=== PATIENT | female | born 1965 | race Caucasian/White ===

== ENCOUNTER 2021-05-28 14:19 | Outpatient (REF) | payer BC, SELFPAY ==
[2021-05-28 16:38] LABS: MANUAL DIFF FLAG NO
[2021-05-28 16:43] LABS: Basophils Percent Auto 0.5 % (0-2); Eosinophils Absolute Auto 0.5 X10*3/uL (0.0-0.4); Eosinophils Percent Auto 6.4 % (0-4); Hematocrit 44.4 % (37.0-47.0); Hemoglobin 14.2 g/dl (12.0-16.0); Imm Gran Abs Auto 0.02 X10*3/uL (0.00-0.03); Imm Gran Pct Auto 0.2 % (0.0-0.4); Lymphocytes Absolute Auto 2.7 X10*3/uL (1.2-4.9); Lymphocytes Percent Auto 32.8 % (20-40); Mean Corpuscular Hemoglobin 31.5 pg (27.0-33.0); Mean Corpuscular Volume 98.4 fL (80.0-98.0); Mean Platelet Volume 12.9 fL (9.4-12.3); Monocytes Absolute Auto 0.6 X10*3/uL (0.1-1.2); Neutrophils Absolute Auto 4.3 x10*3/uL (2.0-8.3); Neutrophils Percent Auto 53.1 % (45-73); Platelet Count 195 X10*3/uL (160-400); Red Blood Count 4.51 X10*6/uL (4.20-5.50); Red Cell Distribution Width 12.8 % (11.0-16.0); White Blood Count 8.2 X10*3/uL (4.8-10.8)
[2021-05-28 17:28] LABS: Alanine Aminotransferase 22 U/L (0-31); Albumin Level 4.5 g/dL (3.5-5.0); Alkaline Phosphatase 92 U/L (39-117); Anion Gap 16 (12-20); Aspartate Amino Transferase 20 U/L (5-31); Bilirubin Total 0.3 mg/dL (0.0-1.0); Blood Urea Nitrogen 17 mg/dL (9-16); Calcium 10.1 mg/dL (8.4-10.2); Carbon Dioxide 27 mmol/L (22-29); Chloride 103 mmol/L (96-108); Estimated Glomerular Filt Rate > 60; Glucose Random 93 mg/dL (60-115); Potassium 4.6 mmol/L (3.3-5.1); Sodium 141 mmol/L (135-145); Total Protein 7.5 g/dL (6.5-8.0)
[2021-05-28 17:50] LABS: TSH reflex Free T4 1.83 uIU/mL (0.32-4.0)
[2021-05-30 05:31] LABS: LDL Cholesterol Direct 157 mg/dL (<100)
== END 2021-05-28 14:20 | disposition home or self-care (01) ==
LOC: HO.HMGCLDS 14:19
PROVIDERS: PCP Internal Medicine; Visit Provider Internal Medicine
DX: Z00.01 Encounter for general adult medical examination with abnormal findings (principal); E66.09 Other obesity due to excess calories; F41.1 Generalized anxiety disorder; J45.40 Moderate persistent asthma, uncomplicated
CPT/HCPCS: 36415; 80053; 83721; 84443; 85025

== ENCOUNTER 2022-01-28 11:25 | Outpatient (REF) | payer BC, SELFPAY ==
--- NOTE | ~2022-01-28 | MM_ITS ---
EXAMINATION: MM SCREENING DIGITAL BREAST TOMOSYNTHESIS, BILATERAL CLINICAL INFORMATION: Screening. Asymptomatic. The lifetime risk of breast cancer based on the Tyrer-Cuzick Model is 10%. COMPARISON: Mammography: 12/10/2018, 08/14/2017, 10/11/2014, 03/27/2014 TECHNIQUE: Digital breast tomosynthesis is performed in both the craniocaudal and mediolateral oblique views along with computer-aided detection (CAD). Synthesized 2D images are generated from the tomosynthesis. FINDINGS: The breasts are heterogeneously dense, which may obscure small masses (ACR BI-RADS breast composition Category c). Parenchymal pattern is similar to prior studies. There is no developing density or architectural abnormality. There is no interval mass or abnormal calcifications. The axilla and skin contours are unremarkable. Incidental low right axillary tail node. No significant changes. MM/MM tomosynthesis screening BI IMPRESSION: No mammographic evidence of malignancy. ASSESSMENT: BI-RADS 2: Benign RECOMMENDATION: Routine annual mammography screening. This patient's information was entered into a reminder system with a target due date for their next mammogram.
== END 2022-01-28 11:26 | disposition home or self-care (01) ==
LOC: HO.MAMMO 11:25
PROVIDERS: PCP Internal Medicine; Visit Provider Internal Medicine
DX: Z12.31 Encounter for screening mammogram for malignant neoplasm of breast (principal)
CPT/HCPCS: 77063; 77067

== ENCOUNTER 2022-08-21 06:07 | Outpatient (REF) | payer BC, SELFPAY ==
[2022-08-21 11:25] LABS: MANUAL DIFF FLAG NO
[2022-08-21 11:51] LABS: Basophils Absolute Auto 0.1 X10*3/uL (0.0-0.2); Basophils Percent Auto 0.8 % (0-2); Eosinophils Absolute Auto 0.4 X10*3/uL (0.0-0.4); Eosinophils Percent Auto 6.4 % (0-4); Hematocrit 45.8 % (37.0-47.0); Hemoglobin 14.7 g/dl (12.0-16.0); Imm Gran Abs Auto 0.02 X10*3/uL (0.00-0.03); Imm Gran Pct Auto 0.3 % (0.0-0.4); Lymphocytes Absolute Auto 2.1 X10*3/uL (1.2-4.9); Lymphocytes Percent Auto 32.1 % (20-40); Mean Corpuscular HGB Conc 32.1 g/dl (31.0-35.0); Mean Corpuscular Hemoglobin 31.6 pg (27.0-33.0); Mean Corpuscular Volume 98.5 fL (80.0-98.0); Mean Platelet Volume 12.9 fL (9.4-12.3); Monocytes Absolute Auto 0.5 X10*3/uL (0.1-1.2); Monocytes Percent Auto 7.4 % (2-11); Neutrophils Absolute Auto 3.4 x10*3/uL (2.0-8.3); Platelet Count 215 X10*3/uL (160-400); Red Blood Count 4.65 X10*6/uL (4.20-5.50); White Blood Count 6.4 X10*3/uL (4.8-10.8)
[2022-08-21 12:50] LABS: Alanine Aminotransferase 19 U/L (0-31); Albumin Level 4.1 g/dL (3.5-5.0); Alkaline Phosphatase 73 U/L (39-117); Anion Gap 12 (12-20); Aspartate Amino Transferase 16 U/L (5-31); Bilirubin Total 0.4 mg/dL (0.0-1.0); Blood Urea Nitrogen 18 mg/dL (9-16); Calcium 9.2 mg/dL (8.4-10.2); Carbon Dioxide 28 mmol/L (22-29); Chloride 106 mmol/L (96-108); Cholesterol 241 mg/dL; Estimated Glomerular Filt Rate > 60; Glucose Fasting 115 mg/dL (60-99); HDL Cholesterol 68 mg/dL; LDL Cholesterol Calculated 156 mg/dl; Potassium 4.3 mmol/L (3.3-5.1); Sodium 142 mmol/L (135-145); TSH reflex Free T4 2.08 uIU/mL (0.32-4.0); Total Protein 6.5 g/dL (6.5-8.0); Triglycerides 86 mg/dL
== END 2022-08-21 06:08 | disposition home or self-care (01) ==
LOC: HO.HMGCLDS 06:07
PROVIDERS: PCP Internal Medicine; Visit Provider Internal Medicine
DX: Z00.01 Encounter for general adult medical examination with abnormal findings (principal); J45.40 Moderate persistent asthma, uncomplicated; E66.09 Other obesity due to excess calories
CPT/HCPCS: 36415; 80053; 80061; 84443; 85025

== ENCOUNTER 2023-01-27 10:25 | Outpatient (AMB) | payer BC, SELFPAY ==
--- NOTE | 2023-01-27 10:35 | MHC.OFFWIV ---
Intake Vital Signs 01/27/23 10:36 Weight 201 lb BP 118/70 Blood Pressure Location Lt brachial Position Sitting Pulse 102 H Pulse Source Pulse Oximeter Temp 98.3 F Temp Source Oral Pulse Oximetry (%) 98 Oxygen Delivery Method Room Air Intake Visit Reasons: EP, Rash by side of mouth Intake Note: Patient here for rash on the left side of mouth that has been present for about 1 month. Patient Tobacco Use Status: Former Tobacco user (quit 28 years ago ) Allergies No Known Allergies Allergy (Verified 01/27/23 10:37) Environmental Allergy (Unknown, Uncoded 01/27/23 10:37) congestion Medication List - Last Reconciled 01/27/23 by Simon Lang MD fluticasone propion-salmeterol 250-50 mcg/dose (Advair Diskus) 1 inh inhalation BID triamcinolone acetonide 0.025% 1 appl topical BID Do you need a note to return to daycare/school/sports/work: No HPI EP, Rash by side of mouth HPI Details 57-year-old female presents to the office for a sick visit. Patient has a rash on the left side of her mouth that she would like evaluated. She gets this rash mostly in the summer months. Always on the left side just adjacent to the angle of the mouth. [facility] Social History Housing: House Patient Tobacco Use Status: Former Tobacco user (quit 28 years ago ) Tobacco use type: Cigarette Years Smoked: 5 years e-Cigarette/Vaping Use: Never Used service: No Current occupational status: employed Cognitive needs: No Hearing needs: No Vision needs: No Physical Exam Vital Signs: Last Vital Signs Temp 98.3 F 01/27/23 10:36 Pulse 102 H 01/27/23 10:36 BP 118/70 01/27/23 10:36 Pulse Ox 98 01/27/23 10:36 Oxygen Delivery Method Room Air 01/27/23 10:36 HEENT Other: Oral cavity: Left side: Brown erythematous area on the corner of the mouth with overlying scales. Assessment & Plan Assessment & Plan (1) Cheilitis due to atopic dermatitis: Code(s): K13.0 - Diseases of lips; L20.9 - Atopic dermatitis, unspecified Plan: steroid cream prescribed. If symptoms not better to follow-up here. Medications: New triamcinolone acetonide 0.025% 1 appl topical BID 15 grams 0RF Discontinued clobetasol 0.05% Discontinued Reason: Doctor's Order 1 appl topical BID 3 weeks 30 grams 0RF Rash Coding Level of Care Code Est Pt Level 3 (10906) Diagnoses Cheilitis due to atopic dermatitis K13.0; L20.9
[2023-01-27 10:36] VITALS: BP 118/70; PULSE 102; TEMP 36.8; O2SAT 98
== END 2023-01-27 12:02 | disposition home or self-care (01) ==
PROVIDERS: PCP Internal Medicine; Visit Provider Internal Medicine
DX: K13.0 Diseases of lips (principal); L20.9 Atopic dermatitis, unspecified
CPT/HCPCS: 99213

== ENCOUNTER 2023-01-29 11:55 | Outpatient (REF) | payer BC, SELFPAY | END 2023-01-29 11:56 | disposition home or self-care (01) | LOC: HO.MAMMO 11:55 | PROVIDERS: PCP Internal Medicine; Visit Provider Internal Medicine | DX: Z12.31 Encounter for screening mammogram for malignant neoplasm of breast (principal) | CPT/HCPCS: 77063; 77067 ==

== ENCOUNTER → 2023-01-29 12:00 | Outpatient (BNV) | payer BC, SELFPAY | PROVIDERS: PCP Internal Medicine; Visit Provider Radiology Diagnostic Radiology | DX: Z12.31 Encounter for screening mammogram for malignant neoplasm of breast (principal) | CPT/HCPCS: 77063; 77067 ==

== ENCOUNTER 2023-02-24 08:51 | Outpatient (AMB) | payer BC, SELFPAY ==
--- NOTE | 2023-02-24 08:59 | MHC.PC.OV ---
Intake Visit Reasons: Med Follow Up~ Intake Note: [phone] Allergies No Known Allergies Allergy (Verified 02/24/23 09:02) Environmental Allergy (Unknown, Uncoded 02/24/23 09:02) congestion Medication List - Last Reconciled 02/24/23 by Mart Watson MD fluticasone propion-salmeterol 250-50 mcg/dose (Advair Diskus) 1 inh inhalation BID triamcinolone acetonide 0.025% 1 appl topical BID Tobacco use date assessed: 02/24/23 Dental Screening Dental Screen Date: 02/24/23 Did you have a dental visit in the last 12 months?: Yes Did you have a dental problem in the last 6 months where you did not have access to dental care?: No Was dental information given to patient?: Patient has dentist HPI Med Follow Up~ HPI Details Patient is a 57-year-old female who is going through stressful time related to her work environment Patient used to take sertraline in the past for depression she stopped taking it when she felt better She tells me that she had some leftover medication 25 mg of sertraline she has started taking that since January 28 She still feel very emotional talking about the work situation. Patient was tearful explaining the situation to me on the telephone I am increasing the sertraline dose to 50 mg patient have a follow-up appointment 12 of March She does have someone to talk to at work. Which is helping. [facility] Social History Housing: House Patient Tobacco Use Status: Former Tobacco user (quit 28 years ago ) Tobacco use type: Cigarette Years Smoked: 5 years e-Cigarette/Vaping Use: Never Used service: No Current occupational status: employed Cognitive needs: No Hearing needs: No Vision needs: No Questionnaire Thrive Questionnaire Date Thrive assessed: 01/30/22 AUDIT C Alcohol Use Questionnaire (AUDIT-C) 1. How often do you have a drink containing alcohol?: 2-3 times a week 2. How many drinks containing alcohol do you have on a typical day when you are drinking?: 1 or 2 3. How often do you have six or more drinks on one occasion?: Never Total Score: 3 CAROLINA-7 AMB Questionnaire CAROLINA-7 Date CAROLINA - 7 assessed: 01/30/22 Source: Developed by Drs. Louie Ugalde, Irma Baldwin, Rayray Meier and colleagues, with an educational cuco from [employer]. Review of Systems Const Denies chills and Denies fever(s) ENT Denies epistaxis and Denies nasal discharge Card Denies chest pain Resp Denies chest congestion, Denies cough and Denies hemoptysis GI Denies diarrhea and Denies nausea Skin/Breast Denies rash Neuro Reports no additional complaints Psych Reports no additional complaints Endo Reports no additional complaints Physical exam (Primary Care) Tobacco/Smoking Status: Tobacco use Status Tobacco use date assessed 02/24/23 02/24/23 09:03 Patient Tobacco Use Status Former Tobacco user (quit 28 02/24/23 09:03 years ago ) Tobacco use type Cigarette 02/24/23 09:03 e-Cigarette/Vaping Use Never Used 02/24/23 09:03 Thrive Assessment: Date of Thrive Assessment Date Thrive assessed 01/30/22 02/24/23 09:03 Telehealth Telehealth Location of provider rendering services: practice address Location of patient: address on file Patient Identification confirmed using: Name, : Yes Telehealth method: voice only Patient verbally consented to treatment: Yes Patient verbally consented to billing insurance company: Yes Patient informed of any privacy concerns related to visit: Yes Minutes spent on Phone/Video with Pt.: 14 Assessment and Plan Assessment & Plan (1) Major depression, recurrent: Code(s): F33.9 - Major depressive disorder, recurrent, unspecified Qualifiers: Active/Remission status: currently active Major depression episode severity: moderate Qualified Code(s): F33.1 - Major depressive disorder, recurrent, moderate Plan Patient is a 57-year-old female who is going through stressful time related to her work environment Patient used to take sertraline in the past for depression she stopped taking it when she felt better She tells me that she had some leftover medication 25 mg of sertraline she has started taking that since January 28 She still feel very emotional talking about the work situation. Patient was tearful explaining the situation to me on the telephone I am increasing the sertraline dose to 50 mg patient have a follow-up appointment 12 of March She does have someone to talk to at work. Which is helping. Medications: New sertraline 50 mg PO DAILY 30 tabs 0RF Coding Level of Care Code Tele Est Pt Level 3 (02916) Diagnoses Moderate episode of recurrent major depressive disorder F33.1 Active/Remission status: currently active Major depression episode severity: moderate
== END 2023-02-24 12:15 | disposition home or self-care (01) ==
LOC: HO.HMGC 08:51
PROVIDERS: PCP Internal Medicine; Visit Provider Internal Medicine
DX: F33.1 Major depressive disorder, recurrent, moderate (principal)
CPT/HCPCS: 99442

== ENCOUNTER 2023-02-27 07:00 | Outpatient (REF) | payer BC, SELFPAY ==
[2023-02-27 11:32] LABS: Estimated Average Glucose 111 mg/dL; Hemoglobin A1c % 5.5 % (<6.0)
[2023-02-27 11:44] LABS: Alanine Aminotransferase 20 U/L (0-31); Albumin Level 4.2 g/dL (3.5-5.0); Alkaline Phosphatase 79 U/L (39-117); Anion Gap 13 (12-20); Aspartate Amino Transferase 16 U/L (5-31); Bilirubin Total 0.3 mg/dL (0.0-1.0); Blood Urea Nitrogen 15 mg/dL (9-16); Calcium 9.3 mg/dL (8.4-10.2); Carbon Dioxide 25 mmol/L (22-29); Chloride 108 mmol/L (96-108); Cholesterol 243 mg/dL (<200); Estimated Glomerular Filt Rate > 60; Glucose Fasting 117 mg/dL (60-99); HDL Cholesterol 78 mg/dL (>40); LDL Cholesterol Calculated 151 mg/dL (<100); Potassium 4.6 mmol/L (3.3-5.1); Sodium 141 mmol/L (135-145); Total Protein 7.3 g/dL (6.5-8.0); Triglycerides 73 mg/dL (<150)
== END 2023-02-27 07:01 | disposition home or self-care (01) ==
LOC: HO.HMGCLDS 07:00
PROVIDERS: PCP Internal Medicine; Visit Provider Internal Medicine
DX: R73.01 Impaired fasting glucose (principal); E78.9 Disorder of lipoprotein metabolism, unspecified
CPT/HCPCS: 36415; 80053; 80061; 83036

== ENCOUNTER 2023-03-12 09:08 | Outpatient (AMB) | payer BC, SELFPAY ==
[2023-03-12 09:12] VITALS: BP 128/72; PULSE 111; O2SAT 98; BMI 33.6
--- NOTE | 2023-03-12 09:12 | MHC.PC.OV ---
Vital Signs 03/12/23 09:12 Height 5 ft 4 in Weight 196 lb BMI 33.6 BP 128/72 Blood Pressure Location Rt brachial Position Sitting Pulse 111 H Pulse Source Pulse Oximeter Pulse Oximetry (%) 98 Oxygen Delivery Method Room Air Intake Visit Reasons: 6m follow up Allergies No Known Allergies Allergy (Verified 03/12/23 09:15) Environmental Allergy (Unknown, Uncoded 02/24/23 09:02) congestion Medication List - Last Reconciled 03/12/23 by Mart Watson MD fluticasone propion-salmeterol 250-50 mcg/dose (Advair Diskus) 1 inh inhalation BID sertraline 50 mg PO DAILY triamcinolone acetonide 0.025% 1 appl topical BID Tobacco use date assessed: 03/12/23 Dental Screening Dental Screen Date: 03/12/23 Did you have a dental visit in the last 12 months?: Yes Did you have a dental problem in the last 6 months where you did not have access to dental care?: No Was dental information given to patient?: Patient has dentist HPI 6m follow up HPI Details Patient is a 57-year-old female came in today for follow-up appointment Patient was feeling depressed last visit 3 weeks ago, she had some leftover sertraline at home that she restarted taking 25 mg We adjusted the dose to 50 mg patient is feeling much better now and she would like to continue this dose. She had a COVID infection 9 days ago and is still recovering from it feeling tired Still have slight dry cough Patient have asthma she is taking her inhaler regularly, her chest is clear on auscultation today. Patient also have elevated lipids it was last check this month LDL is 151 but she does not want to take any medications Impaired fasting sugar with stable hemoglobin A1c BMI is elevated I would recommend for patient to concentrate on losing weight. He has a physical exam appointment in July she will return that. [facility] Social History Housing: House Patient Tobacco Use Status: Former Tobacco user (quit 28 years ago ) Tobacco use type: Cigarette Years Smoked: 5 years e-Cigarette/Vaping Use: Never Used service: No Current occupational status: employed Cognitive needs: No Hearing needs: No Vision needs: No Questionnaire PHQ-9 Over the last 2 weeks, how often have you been bothered by any of the following problems? 1. Little interest or pleasure in doing things: not at all 2. Feeling down, depressed, or hopeless: not at all 3. Trouble falling or staying asleep, or sleeping too much: not at all 4. Feeling tired or having little energy: not at all 5. Poor appetite or overeating: not at all 6. Feeling bad about yourself - or that you are a failure or have let yourself or your family down: not at all 7. Trouble concentrating on things, such as reading the newspaper or watching television: not at all 8. Moving or speaking so slowly that other people could have noticed. Or the opposite - being so fidgety or restless that you have been moving around a lot more than usual: not at all 9. Thoughts that you would be better off or of hurting yourself in some way: not at all Total score: 0 Depression Screening Interpretation: Negative 20952 - PHQ-9 Billing: Yes Source: Developed by Drs. Louie Ugalde, Rayray Hilliard and colleagues, with an educational cuco from [employer]. Thrive Questionnaire Date Thrive assessed: 01/30/22 AUDIT C Alcohol Use Questionnaire (AUDIT-C) 1. How often do you have a drink containing alcohol?: Never 3. How often do you have six or more drinks on one occasion?: Never Total Score: 0 Score Reviewed/Action Taken: Yes CAROLINA-7 AMB Questionnaire CAROLINA-7 Date CAROLINA - 7 assessed: 01/30/22 Source: Developed by Drs. Louie Ugalde, Rayray Hilliard and colleagues, with an educational cuco from [employer]. Review of Systems Const Denies chills and Denies fever(s) ENT Denies epistaxis and Denies nasal discharge Card Denies chest pain Resp Denies chest congestion and Denies hemoptysis GI Denies diarrhea and Denies nausea Skin/Breast Denies rash Neuro Reports no additional complaints Psych Reports no additional complaints Endo Reports no additional complaints Physical exam (Primary Care) Vital Signs: Last Vital Signs Pulse 111 H 03/12/23 09:12 BP 128/72 03/12/23 09:12 Pulse Ox 98 03/12/23 09:12 Oxygen Delivery Method Room Air 03/12/23 09:12 BMI result Body Mass Index 33.6 Tobacco/Smoking Status: Tobacco use Status Tobacco use date assessed 03/12/23 03/12/23 09:15 Patient Tobacco Use Status Former Tobacco user (quit 03/12/23 09:15 years ago ) Tobacco use type Cigarette 03/12/23 09:15 e-Cigarette/Vaping Use Never Used 03/12/23 09:15 Depression Screening Interpretation: Negative Thrive Assessment: Date of Thrive Assessment Date Thrive assessed 01/30/22 03/12/23 09:15 Const General: cooperative, comfortable and no acute distress Orientation/consciousness: patient oriented x3 HENMT Head: Yes normocephalic Eyes General: appearance normal, both eyes and all related structures Neck Neck: Yes supple Resp Effort & Inspection: normal respiratory effort, no cough and no stridor Cardio Rhythm: regular rhythm Heart sounds: S1 normal heart sound present and S2 normal heart sound present Skin General skin exam: turgor normal Neuro General: patient oriented x3, tone normal and moves all extremities Extrem Right lower extremity: no edema Left lower extremity: no edema Assessment and Plan Assessment & Plan (1) Major depression, recurrent: Code(s): F33.9 - Major depressive disorder, recurrent, unspecified Qualifiers: Active/Remission status: currently active Major depression episode severity: moderate Qualified Code(s): F33.1 - Major depressive disorder, recurrent, moderate (2) Asthma, moderate persistent: Code(s): J45.40 - Moderate persistent asthma, uncomplicated Qualifiers: Asthma complication type: uncomplicated Qualified Code(s): J45.40 - Moderate persistent asthma, uncomplicated (3) Anxiety, generalized: Code(s): F41.1 - Generalized anxiety disorder (4) Lipid disorder: Code(s): E78.9 - Disorder of lipoprotein metabolism, unspecified (5) Impaired fasting blood sugar: Code(s): R73.01 - Impaired fasting glucose Plan Patient is a 57-year-old female came in today for follow-up appointment Patient was feeling depressed last visit 3 weeks ago, she had some leftover sertraline at home that she restarted taking 25 mg We adjusted the dose to 50 mg patient is feeling much better now and she would like to continue this dose. She had a COVID infection 9 days ago and is still recovering from it feeling tired Still have slight dry cough Patient have asthma she is taking her inhaler regularly, her chest is clear on auscultation today. Patient also have elevated lipids it was last check this month LDL is 151 but she does not want to take any medications Impaired fasting sugar with stable hemoglobin A1c BMI is elevated I would recommend for patient to concentrate on losing weight. He has a physical exam appointment in July she will return that. Medications: Refilled sertraline 50 mg PO DAILY 90 tabs 1RF Coding Level of Care Code Est Pt Level 4 (58501) Diagnoses Moderate episode of recurrent major depressive disorder F33.1 Active/Remission status: currently active Major depression episode severity: moderate Moderate persistent asthma without complication J45.40 Asthma complication type: uncomplicated Anxiety, generalized F41.1 Lipid disorder E78.9 Impaired fasting blood sugar R73.01
== END 2023-03-12 11:44 | disposition home or self-care (01) ==
PROVIDERS: PCP Internal Medicine; Visit Provider Internal Medicine
DX: F33.1 Major depressive disorder, recurrent, moderate (principal); J45.40 Moderate persistent asthma, uncomplicated; F41.1 Generalized anxiety disorder; E78.9 Disorder of lipoprotein metabolism, unspecified; R73.01 Impaired fasting glucose
CPT/HCPCS: 99214

== ENCOUNTER 2023-09-01 12:56 | Outpatient (AMB) | payer BC, SELFPAY ==
--- NOTE | 2023-09-01 13:04 | MHC.PC.OV ---
Vital Signs 09/01/23 13:08 Height 5 ft 4 in Weight 199 lb 8 oz BMI 34.2 BP 120/72 Blood Pressure Location Lt brachial Position Sitting Pulse 90 Pulse Source Pulse Oximeter Pulse Oximetry (%) 96 Oxygen Delivery Method Room Air Intake Visit Reasons: Overdue F/u ~ Allergies No Known Allergies Allergy (Verified 09/01/23 13:10) Environmental Allergy (Unknown, Uncoded 02/24/23 09:02) congestion Medication List - Last Reconciled 09/01/23 by Mart Watson MD fluticasone propion-salmeterol 250-50 mcg/dose (Advair Diskus) 1 inh inhalation BID sertraline 50 mg PO DAILY Tobacco use date assessed: 09/01/23 Dental Screening Dental Screen Date: 09/01/23 Did you have a dental visit in the last 12 months?: Yes Did you have a dental problem in the last 6 months where you did not have access to dental care?: No Was dental information given to patient?: Patient has dentist HPI Overdue F/u ~ HPI Details Patient is a 57-year-old female this is a regular follow-up appointment She is feeling much better, patient has decided to retire She says that she is ready to cut down sertraline dose to 25 mg Allergies: Patient is getting allergy shots for years Still her allergies are acting up due to spring Asthma is stable she is taking Advair daily. Patient have impaired fasting sugar and elevated lipids She is willing to take small dose of statin which I have sent for her. BMI is elevated need to lose weight Seborrheic dermatitis stable Follow-up 4 months [facility] Social History Housing: House Patient Tobacco Use Status: Former Tobacco user (quit 28 years ago ) Tobacco use type: Cigarette Years Smoked: 5 years e-Cigarette/Vaping Use: Never Used service: No Current occupational status: employed Cognitive needs: No Hearing needs: No Vision needs: No Questionnaire PHQ-9 Over the last 2 weeks, how often have you been bothered by any of the following problems? 1. Little interest or pleasure in doing things: not at all 2. Feeling down, depressed, or hopeless: not at all 3. Trouble falling or staying asleep, or sleeping too much: several days 4. Feeling tired or having little energy: several days 5. Poor appetite or overeating: not at all 6. Feeling bad about yourself - or that you are a failure or have let yourself or your family down: not at all 7. Trouble concentrating on things, such as reading the newspaper or watching television: several days 8. Moving or speaking so slowly that other people could have noticed. Or the opposite - being so fidgety or restless that you have been moving around a lot more than usual: not at all 9. Thoughts that you would be better off or of hurting yourself in some way: not at all Total score: 3 Depression Screening Interpretation: Negative Depression Screening Done: Yes 93112 - PHQ-9 Billing: Yes Source: Developed by Drs. Louie Ugalde, Irma Baldwin, Rayray Meier and colleagues, with an educational cuco from [employer]. Thrive Questionnaire Date Thrive assessed: 09/01/23 I am a: Patient What is your living situation today?: I have a steady place to live Within the past 12 months, did the food you bought not last and you didn't have the money to get more?: Never true Within the past 12 months, did you worry whether your food would run out before you got money to buy more?: Never true Do you have trouble paying for medicines?: No Do you have trouble getting transportation to medical appointments?: No Do you have trouble paying your heating and electricity bill?: No Do you have trouble taking care of your child, family member or friend?: No Do you have trouble with day-to-day activities such as bathing, preparing meals, shopping, managing finances, etc.?: No Are you currently unemployed and looking for a job?: No Are you interested in more education?: No Please select the resources that you would like help with: None Currently or been in a relationship where the following occur: no concerns reported THRIVE Score: 0 AUDIT C Alcohol Use Questionnaire (AUDIT-C) 1. How often do you have a drink containing alcohol?: Never 3. How often do you have six or more drinks on one occasion?: Never Total Score: 0 Score Reviewed/Action Taken: Yes CAROLINA-7 AMB Questionnaire CAROLINA-7 Date CAROLINA - 7 assessed: 09/01/23 Feeling nervous, anxious, or on edge: 1 = Several days Not being able to stop or control worryin = Several days Worrying too much about different things: 1 = Several days Trouble relaxin = Several days Being so restless that it is hard to sit still: 1 = Several days Becoming easily annoyed or irritable: 1 = Several days Feeling afraid as if something awful might happen: 0 = Not at all Total CAROLINA-7 score (0-4 normal; 5-9 mild; 10-14 moderate; 15-21 severe): 6 Source: Developed by Drs. Louie Ugalde, Irma Baldwin, Rayray Meier and colleagues, with an educational cuco from [employer]. CAROLINA-7 Assessment Billing CAROLINA-7 Assessment Tool: CAROLINA-7 Assessment 53318 Review of Systems Const Denies chills and Denies fever(s) ENT Denies epistaxis and Denies nasal discharge Card Denies chest pain Resp Denies chest congestion, Denies cough and Denies hemoptysis GI Denies diarrhea and Denies nausea Skin/Breast Denies rash Neuro Reports no additional complaints Psych Reports no additional complaints Endo Reports no additional complaints Physical exam (Primary Care) Vital Signs: Last Vital Signs Pulse 90 09/01/23 13:08 BP 120/72 09/01/23 13:08 Pulse Ox 96 09/01/23 13:08 Oxygen Delivery Method Room Air 09/01/23 13:08 BMI result Body Mass Index 34.2 Tobacco/Smoking Status: Tobacco use Status Tobacco use date assessed 09/01/23 09/01/23 13:11 Patient Tobacco Use Status Former Tobacco user (quit 28 09/01/23 13:07 years ago ) Tobacco use type Cigarette 09/01/23 13:07 e-Cigarette/Vaping Use Never Used 09/01/23 13:07 PHQ-9: PHQ-9 Score PHQ-9: Total score 3 09/01/23 13:12 Depression Screening Interpretation: Negative Thrive Assessment: Date of Thrive Assessment Date Thrive assessed 09/01/23 09/01/23 13:12 Currently or been in a relationship where the following occur: no concerns reported Const General: cooperative, comfortable and no acute distress Orientation/consciousness: patient oriented x3 HENMT Head: Yes normocephalic Eyes General: appearance normal, both eyes and all related structures Neck Neck: Yes supple Resp Effort & Inspection: normal respiratory effort, no cough and no stridor Cardio Rhythm: regular rhythm Heart sounds: S1 normal heart sound present and S2 normal heart sound present Skin General skin exam: turgor normal Neuro General: patient oriented x3, tone normal and moves all extremities Extrem Right lower extremity: no edema Left lower extremity: no edema Assessment and Plan Assessment & Plan (1) Anxiety, generalized: Code(s): F41.1 - Generalized anxiety disorder (2) Major depression, recurrent: Code(s): F33.9 - Major depressive disorder, recurrent, unspecified Qualifiers: Active/Remission status: currently active Major depression episode severity: moderate Qualified Code(s): F33.1 - Major depressive disorder, recurrent, moderate (3) Asthma, moderate persistent: Code(s): J45.40 - Moderate persistent asthma, uncomplicated Qualifiers: Asthma complication type: uncomplicated Qualified Code(s): J45.40 - Moderate persistent asthma, uncomplicated (4) Impaired fasting blood sugar: Code(s): R73.01 - Impaired fasting glucose (5) Lipid disorder: Code(s): E78.9 - Disorder of lipoprotein metabolism, unspecified (6) Seborrheic dermatitis: Code(s): L21.9 - Seborrheic dermatitis, unspecified Plan Patient is a 57-year-old female this is a regular follow-up appointment She is feeling much better, patient has decided to retire She says that she is ready to cut down sertraline dose to 25 mg Allergies: Patient is getting allergy shots for years Still her allergies are acting up due to spring season Asthma is stable she is taking Advair daily. Patient have impaired fasting sugar and elevated lipids She is willing to take small dose of statin which I have sent for her. BMI is elevated need to lose weight Seborrheic dermatitis stable Follow-up 4 months Orders: Orders Complete Blood Count Auto Diff Today E78.9 - Disorder of lipoprotein metabolism, unspecified, F33.9 - Major depressive disorder, recurrent, unspecified, F41.1 - Generalized anxiety disorder, J45.40 - Moderate persistent asthma, uncomplicated, L21.9 - Seborrheic dermatitis, unspecified, R73.01 - Impaired fasting glucose Comprehensive Met. Panel Today E78.9 - Disorder of lipoprotein metabolism, unspecified, F33.9 - Major depressive disorder, recurrent, unspecified, F41.1 - Generalized anxiety disorder, J45.40 - Moderate persistent asthma, uncomplicated, L21.9 - Seborrheic dermatitis, unspecified, R73.01 - Impaired fasting glucose LDL Cholesterol Direct Today E78.9 - Disorder of lipoprotein metabolism, unspecified, F33.9 - Major depressive disorder, recurrent, unspecified, F41.1 - Generalized anxiety disorder, J45.40 - Moderate persistent asthma, uncomplicated, L21.9 - Seborrheic dermatitis, unspecified, R73.01 - Impaired fasting glucose Medications: New rosuvastatin 5 mg PO DAILY 90 tabs 0RF Elevated cholesterol Changed From sertraline 50 mg PO DAILY 90 tabs 1RF To sertraline 25 mg PO DAILY 90 days 90 tabs 1RF Refilled fluticasone propion-salmeterol 250-50 mcg/dose (Advair Diskus) 1 inh inhalation BID 60 ea 2RF J45.909 - Unspecified asthma, uncomplicated Coding Level of Care Code Est Pt Level 4 (76848) Diagnoses Anxiety, generalized F41.1 Moderate episode of recurrent major depressive disorder F33.1 Active/Remission status: currently active Major depression episode severity: moderate Moderate persistent asthma without complication J45.40 Asthma complication type: uncomplicated Impaired fasting blood sugar R73.01 Lipid disorder E78.9 Seborrheic dermatitis L21.9 Additional Codes CAROLINA-7 Assessment Billing - CAROLINA-7 Assessment Tool: CAROLINA-7 Assessment 53323 ([id number])
[2023-09-01 13:08] VITALS: BP 120/72; PULSE 90; O2SAT 96; BMI 34.2
== END 2023-09-01 13:27 | disposition home or self-care (01) ==
PROVIDERS: PCP Internal Medicine; Visit Provider Internal Medicine
DX: F41.1 Generalized anxiety disorder (principal); F33.1 Major depressive disorder, recurrent, moderate; J45.40 Moderate persistent asthma, uncomplicated; R73.01 Impaired fasting glucose; E78.9 Disorder of lipoprotein metabolism, unspecified; L21.9 Seborrheic dermatitis, unspecified
CPT/HCPCS: 99214

== ENCOUNTER 2023-09-01 13:29 | Outpatient (REF) | payer BC, SELFPAY ==
[2023-09-01 16:18] LABS: MANUAL DIFF FLAG NO
[2023-09-01 16:25] LABS: Basophils Percent Auto 0.6 % (0-2); Eosinophils Absolute Auto 0.3 X10*3/uL (0.0-0.4); Eosinophils Percent Auto 4.3 % (0-4); Hemoglobin 14.3 g/dl (12.0-16.0); Imm Gran Abs Auto 0.02 X10*3/uL (0.00-0.03); Imm Gran Pct Auto 0.3 % (0.0-0.4); Lymphocytes Absolute Auto 2.4 X10*3/uL (1.2-4.9); Lymphocytes Percent Auto 33.4 % (20-40); Mean Corpuscular HGB Conc 33.3 g/dl (31.0-35.0); Mean Corpuscular Hemoglobin 32.2 pg (27.0-33.0); Mean Corpuscular Volume 96.8 fL (80.0-98.0); Mean Platelet Volume 12.8 fL (9.4-12.3); Monocytes Absolute Auto 0.5 X10*3/uL (0.1-1.2); Monocytes Percent Auto 6.4 % (2-11); Neutrophils Absolute Auto 3.9 x10*3/uL (2.0-8.3); Platelet Count 188 X10*3/uL (160-400); Red Blood Count 4.44 X10*6/uL (4.20-5.50); Red Cell Distribution Width 12.9 % (11.0-16.0)
[2023-09-01 16:43] LABS: Alanine Aminotransferase 19 U/L (0-31); Albumin Level 4.4 g/dL (3.5-5.0); Alkaline Phosphatase 85 U/L (39-117); Anion Gap 15 (12-20); Aspartate Amino Transferase 18 U/L (5-31); Bilirubin Total 0.3 mg/dL (0.0-1.0); Blood Urea Nitrogen 14 mg/dL (9-16); Calcium 9.6 mg/dL (8.4-10.2); Carbon Dioxide 26 mmol/L (22-29); Chloride 102 mmol/L (96-108); Estimated Glomerular Filt Rate > 60; Glucose Random 95 mg/dL (60-115); Potassium 3.8 mmol/L (3.3-5.1); Sodium 139 mmol/L (135-145); Total Protein 7.4 g/dL (6.5-8.0)
[2023-09-03 13:48] LABS: LDL Cholesterol Direct 173 mg/dL (<100)
== END 2023-09-01 13:30 | disposition home or self-care (01) ==
LOC: HO.HMGCLDS 13:29
PROVIDERS: PCP Internal Medicine; Visit Provider Internal Medicine
DX: F33.9 Major depressive disorder, recurrent, unspecified (principal); R73.01 Impaired fasting glucose; E78.9 Disorder of lipoprotein metabolism, unspecified; L21.9 Seborrheic dermatitis, unspecified; F41.1 Generalized anxiety disorder; J45.40 Moderate persistent asthma, uncomplicated
CPT/HCPCS: 36415; 80053; 83721; 85025

== ENCOUNTER 2023-12-21 08:48 | Outpatient (AMB) | payer BC, SELFPAY ==
--- NOTE | 2023-12-21 08:56 | A.OFFPC_ITS ---
Vital Signs 12/21/23 08:57 Height 5 ft 4 in Weight 201 lb 6 oz BMI 34.6 BP 126/76 Blood Pressure Location Lt brachial Position Sitting Pulse 86 Pulse Source Pulse Oximeter Pulse Oximetry (%) 96 Oxygen Delivery Method Room Air Intake Visit Reasons: follow up Allergies No Known Allergies Allergy (Verified 12/21/23 08:58) Environmental Allergy (Unknown, Uncoded 02/24/23 09:02) congestion Medication List - Last Reconciled 12/21/23 by Mart Watson MD fluticasone propion-salmeterol 250-50 mcg/dose (Advair Diskus) 1 inh inhalation BID rosuvastatin 5 mg PO DAILY sertraline 25 mg PO DAILY 90 days Tobacco use date assessed: 12/21/23 Dental Screening Dental Screen Date: 12/21/23 Did you have a dental visit in the last 12 months?: Yes Did you have a dental problem in the last 6 months where you did not have access to dental care?: No Was dental information given to patient?: Patient has dentist HPI follow up HPI Details Patient is a 57-year-old female this is a regular follow-up appointment Doing well offer no complaints today Depression is stable patient is not taking sertraline 25 mg every other day and she in 10 to wean herself off it. Allergies: Patient is getting allergy shots for years Still her allergies are acting up due to spring Asthma is stable she is taking Advair daily. No needing rescue inhaler Patient have impaired fasting sugar and elevated lipids Lipid disorder: Continue statin, patient have appointment in April Labs are needed to be repeated at that time, order placed BMI is elevated need to lose weight Seborrheic dermatitis stable [facility] Social History Housing: House Patient Tobacco Use Status: Former Tobacco user (quit 28 years ago ) Tobacco use type: Cigarette Years Smoked: 5 years e-Cigarette/Vaping Use: Never Used service: No Current occupational status: employed Cognitive needs: No Hearing needs: No Vision needs: No Questionnaire Thrive Questionnaire Date Thrive assessed: 09/01/23 AUDIT C Alcohol Use Questionnaire (AUDIT-C) 1. How often do you have a drink containing alcohol?: Never 3. How often do you have six or more drinks on one occasion?: Never Total Score: 0 Score Reviewed/Action Taken: Yes CAROLINA-7 AMB Questionnaire CAROLINA-7 Date CAROLINA - 7 assessed: 09/01/23 Source: Developed by Drs. Louie Ugalde, Irma Baldwin, Rayray Meier and colleagues, with an educational cuco from [employer]. Review of Systems Const Denies chills and Denies fever(s) ENT Denies epistaxis and Denies nasal discharge Card Denies chest pain Resp Denies chest congestion, Denies cough and Denies hemoptysis GI Denies diarrhea and Denies nausea Skin/Breast Denies rash Neuro Reports no additional complaints Psych Reports no additional complaints Endo Reports no additional complaints Physical exam (Primary Care) Vital Signs: Last Vital Signs Pulse 86 12/21/23 08:57 BP 126/76 12/21/23 08:57 Pulse Ox 96 12/21/23 08:57 Oxygen Delivery Method Room Air 12/21/23 08:57 BMI result Body Mass Index 34.6 Tobacco/Smoking Status: Tobacco use Status Tobacco use date assessed 12/21/23 12/21/23 08:59 Patient Tobacco Use Status Former Tobacco user (quit 28 12/21/23 08:59 years ago ) Tobacco use type Cigarette 12/21/23 08:59 e-Cigarette/Vaping Use Never Used 12/21/23 08:59 Thrive Assessment: Date of Thrive Assessment Date Thrive assessed 09/01/23 12/21/23 08:59 Const General: cooperative, comfortable and no acute distress Orientation/consciousness: patient oriented x3 HENMT Head: Yes normocephalic Eyes General: appearance normal, both eyes and all related structures Neck Neck: Yes supple Resp Effort & Inspection: normal respiratory effort, no cough and no stridor Cardio Rhythm: regular rhythm Heart sounds: S1 normal heart sound present and S2 normal heart sound present Skin General skin exam: turgor normal Neuro General: patient oriented x3, tone normal and moves all extremities Extrem Right lower extremity: no edema Left lower extremity: no edema Assessment and Plan Assessment & Plan (1) Asthma, moderate persistent: Code(s): J45.40 - Moderate persistent asthma, uncomplicated Qualifiers: Asthma complication type: uncomplicated Qualified Code(s): J45.40 - Moderate persistent asthma, uncomplicated (2) Major depression, recurrent: Code(s): F33.9 - Major depressive disorder, recurrent, unspecified Qualifiers: Active/Remission status: currently active Major depression episode severity: moderate Qualified Code(s): F33.1 - Major depressive disorder, recurrent, moderate (3) Impaired fasting blood sugar: Code(s): R73.01 - Impaired fasting glucose (4) Lipid disorder: Code(s): E78.9 - Disorder of lipoprotein metabolism, unspecified (5) Seborrheic dermatitis: Code(s): L21.9 - Seborrheic dermatitis, unspecified (6) Obesity due to excess calories: Code(s): E66.09 - Other obesity due to excess calories Qualifiers: Body mass index: BMI 34.0-34.9 Obesity classification: adult class 1 (BMI 30 - 34.9) Serious obesity comorbidity presence: with serious comorbidity Qualified Code(s): E66.09 - Other obesity due to excess calories; Z68.34 - Body mass index [BMI] 34.0-34.9, adult Plan Patient is a 57-year-old female this is a regular follow-up appointment Doing well offer no complaints today Depression is stable patient is not taking sertraline 25 mg every other day and she in 10 to wean herself off it. Allergies: Patient is getting allergy shots for years Still her allergies are acting up due to spring season Asthma is stable she is taking Advair daily. No needing rescue inhaler Patient have impaired fasting sugar and elevated lipids Lipid disorder: Continue statin, patient have appointment in April Labs are needed to be repeated at that time, order placed BMI is elevated need to lose weight Seborrheic dermatitis stable Orders: Orders Lipid Panel Today E66.09 - Other obesity due to excess calories, E78.9 - Disorder of lipoprotein metabolism, unspecified, F33.1 - Major depressive disorder, recurrent, moderate, J45.40 - Moderate persistent asthma, uncomplicated, L21.9 - Seborrheic dermatitis, unspecified, R73.01 - Impaired fasting glucose Complete Blood Count Auto Diff Today E66.09 - Other obesity due to excess calories, E78.9 - Disorder of lipoprotein metabolism, unspecified, F33.1 - Major depressive disorder, recurrent, moderate, J45.40 - Moderate persistent asthma, uncomplicated, L21.9 - Seborrheic dermatitis, unspecified, R73.01 - Impaired fasting glucose Comprehensive [place]. Panel Fast Today E66.09 - Other obesity due to excess calories, E78.9 - Disorder of lipoprotein metabolism, unspecified, F33.1 - Major depressive disorder, recurrent, moderate, J45.40 - Moderate persistent asthma, uncomplicated, L21.9 - Seborrheic dermatitis, unspecified, R73.01 - Impaired fasting glucose TSH reflex Free T4 Today E66.09 - Other obesity due to excess calories, E78.9 - Disorder of lipoprotein metabolism, unspecified, F33.1 - Major depressive disorder, recurrent, moderate, J45.40 - Moderate persistent asthma, uncomplicated, L21.9 - Seborrheic dermatitis, unspecified, R73.01 - Impaired fasting glucose Coding Level of Care Code Est Pt Level 4 (85708) Diagnoses Moderate persistent asthma without complication J45.40 Asthma complication type: uncomplicated Moderate episode of recurrent major depressive disorder F33.1 Active/Remission status: currently active Major depression episode severity: moderate Impaired fasting blood sugar R73.01 Lipid disorder E78.9 Seborrheic dermatitis L21.9 Class 1 obesity due to excess calories with serious comorbidity and body mass index (BMI) of 34.0 to 34.9 in adult E66.09; Z68.34 Body mass index: BMI 34.0-34.9 Obesity classification: adult class 1 (BMI 30 - 34.9) Serious obesity comorbidity presence: with serious comorbidity
[2023-12-21 08:57] VITALS: BP 126/76; PULSE 86; O2SAT 96; BMI 34.6
== END 2023-12-21 09:21 | disposition home or self-care (01) ==
PROVIDERS: PCP Internal Medicine; Visit Provider Internal Medicine
DX: J45.40 Moderate persistent asthma, uncomplicated (principal); F33.1 Major depressive disorder, recurrent, moderate; R73.01 Impaired fasting glucose; E78.9 Disorder of lipoprotein metabolism, unspecified; L21.9 Seborrheic dermatitis, unspecified; E66.09 Other obesity due to excess calories; Z68.34 Body mass index [BMI] 34.0-34.9, adult
CPT/HCPCS: 99214

== ENCOUNTER 2024-03-04 08:22 | Outpatient (REF) | payer BC, SELFPAY ==
--- NOTE | ~2024-03-04 | MM_ITS ---
EXAMINATION: MM SCREENING DIGITAL BREAST TOMOSYNTHESIS, BILATERAL CLINICAL INFORMATION: Screening. Asymptomatic. COMPARISON: Mammography: Comparison is made with available priors TECHNIQUE: Digital breast mammography with tomosynthesis is performed in both the craniocaudal and mediolateral oblique views along with computer-aided detection (CAD). FINDINGS: There are scattered areas of fibroglandular density (ACR BI-RADS breast composition Category b). There are no significant masses, abnormal calcifications, or other abnormalities. MM/MM tomosynthesis screening BI IMPRESSION: No mammographic evidence of malignancy. ASSESSMENT: BI-RADS BI-RADS 1 - Negative RECOMMENDATION: Routine annual mammography screening. 1 year F/U This examination should not preclude the clinical evaluation of a suspicious palpable abnormality. This patient's information was entered into a reminder system with a target due date for their next mammogram. Electronically signed by: Shama Moore DO 03/16/2024 08:55 AM EDT
== END 2024-03-04 08:23 | disposition home or self-care (01) ==
LOC: HO.MAMMO 08:22
PROVIDERS: PCP Internal Medicine; Visit Provider Internal Medicine
DX: Z12.31 Encounter for screening mammogram for malignant neoplasm of breast (principal)
CPT/HCPCS: 77063; 77067

== ENCOUNTER → 2024-03-04 08:30 | Outpatient (BNV) | payer BC, SELFPAY | PROVIDERS: PCP Internal Medicine; Visit Provider Internal Medicine | DX: Z12.31 Encounter for screening mammogram for malignant neoplasm of breast (principal) | CPT/HCPCS: 77063; 77067 ==

== ENCOUNTER 2024-04-19 07:03 | Outpatient (REF) | payer BC, SELFPAY ==
[2024-04-19 10:07] LABS: MANUAL DIFF FLAG NO
[2024-04-19 10:18] LABS: Basophils Absolute Auto 0.1 X10*3/uL (0.0-0.2); Basophils Percent Auto 0.9 % (0-2); Eosinophils Absolute Auto 0.7 X10*3/uL (0.0-0.4); Eosinophils Percent Auto 11.2 % (0-4); Hematocrit 44.5 % (37.0-47.0); Hemoglobin 14.6 g/dl (12.0-16.0); Imm Gran Abs Auto 0.01 X10*3/uL (0.00-0.03); Imm Gran Pct Auto 0.2 % (0.0-0.4); Lymphocytes Absolute Auto 1.9 X10*3/uL (1.2-4.9); Lymphocytes Percent Auto 30.1 % (20-40); Mean Corpuscular HGB Conc 32.8 g/dl (31.0-35.0); Mean Corpuscular Hemoglobin 31.8 pg (27.0-33.0); Mean Corpuscular Volume 96.9 fL (80.0-98.0); Mean Platelet Volume 12.6 fL (9.4-12.3); Monocytes Absolute Auto 0.5 X10*3/uL (0.1-1.2); Monocytes Percent Auto 7.6 % (2-11); Neutrophils Absolute Auto 3.2 x10*3/uL (2.0-8.3); Platelet Count 211 X10*3/uL (160-400); Red Blood Count 4.59 X10*6/uL (4.20-5.50); Red Cell Distribution Width 12.8 % (11.0-16.0); White Blood Count 6.5 X10*3/uL (4.8-10.8)
[2024-04-19 10:47] LABS: Alanine Aminotransferase 29 U/L (0-31); Albumin Level 4.4 g/dL (3.5-5.0); Alkaline Phosphatase 73 U/L (39-117); Anion Gap 14 (12-20); Aspartate Amino Transferase 26 U/L (5-31); Bilirubin Total 0.4 mg/dL (0.0-1.0); Blood Urea Nitrogen 15 mg/dL (9-16); Calcium 10.1 mg/dL (8.4-10.2); Carbon Dioxide 26 mmol/L (22-29); Chloride 106 mmol/L (96-108); Cholesterol 205 mg/dL (<200); Estimated Glomerular Filt Rate > 60; Glucose Fasting 90 mg/dL (60-99); HDL Cholesterol 79 mg/dL (>40); LDL Cholesterol Calculated 109 mg/dL (<100); Potassium 4.4 mmol/L (3.3-5.1); Sodium 142 mmol/L (135-145); Total Protein 7.4 g/dL (6.5-8.0); Triglycerides 87 mg/dL (<150)
[2024-04-19 10:53] LABS: TSH reflex Free T4 2.23 uIU/mL (0.32-4.0)
== END 2024-04-19 07:04 | disposition home or self-care (01) ==
LOC: HO.HMGCLDS 07:03
PROVIDERS: PCP Internal Medicine; Visit Provider Internal Medicine
DX: J45.40 Moderate persistent asthma, uncomplicated (principal); E78.9 Disorder of lipoprotein metabolism, unspecified; R73.01 Impaired fasting glucose; L21.9 Seborrheic dermatitis, unspecified; E66.09 Other obesity due to excess calories; F33.1 Major depressive disorder, recurrent, moderate
CPT/HCPCS: 36415; 80053; 80061; 84443; 85025

== ENCOUNTER 2024-04-25 10:25 | Outpatient (AMB) | payer BC, SELFPAY ==
[2024-04-25 10:39] VITALS: BP 134/82; PULSE 102; O2SAT 99; BMI 34.6
--- NOTE | 2024-04-25 10:39 | A.OFFPC_ITS ---
Vital Signs 04/25/24 10:39 Height 5 ft 4 in Weight 201 lb 8 oz BMI 34.6 BP 134/82 Blood Pressure Location Rt brachial Position Sitting Pulse 102 H Pulse Source Pulse Oximeter Pulse Oximetry (%) 99 Oxygen Delivery Method Room Air Intake Visit Reasons: PE Allergies No Known Allergies Allergy (Verified 04/25/24 10:41) Environmental Allergy (Unknown, Uncoded 02/24/23 09:02) congestion Medication List - Last Reconciled 04/25/24 by Mart Watson MD fluticasone propion-salmeterol 250-50 mcg/dose (Advair Diskus) 1 inh inhalation BID rosuvastatin 5 mg PO DAILY sertraline 25 mg PO DAILY 90 days Tobacco use date assessed: 04/25/24 Dental Screening Dental Screen Date: 04/25/24 Did you have a dental visit in the last 12 months?: Yes Did you have a dental problem in the last 6 months where you did not have access to dental care?: No Was dental information given to patient?: Patient has dentist HPI PE HPI Details Patient is a 58-year-old female came in today for physical exam Colonoscopy was at age [address] Robles next 1 will be at 62 years of age Labs done this month reviewed Lipids are well-controlled now Patient has developed a dry patch which is located left axillary area And is getting bigger, and is raised. She need to see a Dermatology, referral placed OBGYN visit was March of last year Medication list reviewed Order for next set of lab placed to be done in six-month with visit BMI is elevated patient is trying lose weight Breast exam was declined COUNTS INCLUDE 234 BEDS AT THE [facility] Social History Housing: House Patient Tobacco Use Status: Former Tobacco user (quit 28 years ago ) Tobacco use type: Cigarette Years Smoked: 5 years e-Cigarette/Vaping Use: Never Used service: No Current occupational status: employed Cognitive needs: No Hearing needs: No Vision needs: No Questionnaire PHQ-9 Over the last 2 weeks, how often have you been bothered by any of the following problems? 1. Little interest or pleasure in doing things: not at all 2. Feeling down, depressed, or hopeless: not at all 3. Trouble falling or staying asleep, or sleeping too much: not at all 4. Feeling tired or having little energy: not at all 5. Poor appetite or overeating: not at all 6. Feeling bad about yourself - or that you are a failure or have let yourself or your family down: not at all 7. Trouble concentrating on things, such as reading the newspaper or watching television: not at all 8. Moving or speaking so slowly that other people could have noticed. Or the opposite - being so fidgety or restless that you have been moving around a lot more than usual: not at all 9. Thoughts that you would be better off or of hurting yourself in some way: not at all Total score: 0 Depression Screening Interpretation: Negative Depression Screening Done: Yes 80305 - PHQ-9 Billing: Yes Source: Developed by Drs. Louie Ugalde, Irma Baldwin, Rayray Meier and colleagues, with an educational cuco from [employer]. Thrive Questionnaire Date Thrive assessed: 04/25/24 I am a: Patient What is your living situation today?: I have a steady place to live Within the past 12 months, did the food you bought not last and you didn't have the money to get more?: Never true Within the past 12 months, did you worry whether your food would run out before you got money to buy more?: Never true Do you have trouble paying for medicines?: No Do you have trouble getting transportation to medical appointments?: No Do you have trouble paying your heating and electricity bill?: No Do you have trouble taking care of your child, family member or friend?: No Do you have trouble with day-to-day activities such as bathing, preparing meals, shopping, managing finances, etc.?: No Are you currently unemployed and looking for a job?: No Are you interested in more education?: No Please select the resources that you would like help with: None Currently or been in a relationship where the following occur: No concerns reported THRIVE Score: 0 AUDIT C Alcohol Use Questionnaire (AUDIT-C) 1. How often do you have a drink containing alcohol?: 2-3 times a week 2. How many drinks containing alcohol do you have on a typical day when you are drinking?: 1 or 2 3. How often do you have six or more drinks on one occasion?: Never Total Score: 3 Score Reviewed/Action Taken: Yes CAROLINA-7 AMB Questionnaire CAROLINA-7 Date CAROLINA - 7 assessed: 04/25/24 Feeling nervous, anxious, or on edge: 0 = Not at all Not being able to stop or control worryin = Not at all Worrying too much about different things: 0 = Not at all Trouble relaxin = Not at all Being so restless that it is hard to sit still: 0 = Not at all Becoming easily annoyed or irritable: 0 = Not at all Feeling afraid as if something awful might happen: 0 = Not at all Total CAROLINA-7 score (0-4 normal; 5-9 mild; 10-14 moderate; 15-21 severe): 0 Source: Developed by Drs. Louie Ugalde, Irma Baldwin, Rayray Meier and colleagues, with an educational cuco from [employer]. CAROLINA-7 Assessment Billing CAROLINA-7 Assessment Tool: CAROLINA-7 Assessment 64961 Review of Systems Const Denies chills, Denies fever(s) and Denies headache(s) Eyes Denies blurry vision ENT Denies headache(s), Denies nasal discharge, Denies nasal obstruction, Denies odynophagia and Denies sinus pain Card Denies chest pain at rest and Denies chest pain with activity Resp Denies cough and Denies hemoptysis GI Denies diarrhea, Denies odynophagia, Denies vomiting and Denies hematemesis Reports as per HPI Musc Denies abnormal gait Skin/Breast Reports as per HPI Neuro Denies Neuro-related abnormal movements, Denies Abnormal speech present, Denies abnormal gait, Denies headache(s) and Denies Sensory deficit (Neuro) Psych Denies mood swings and Denies paranoia Endo Reports as per HPI Jose Alejandro/Lymph Reports as per HPI Aller/Immun Reports as per HPI Physical exam (Primary Care) Vital Signs: Last Vital Signs Pulse 102 H 04/25/24 10:39 BP 134/82 04/25/24 10:39 Pulse Ox 99 04/25/24 10:39 Oxygen Delivery Method Room Air 04/25/24 10:39 BMI result Body Mass Index 34.6 Tobacco/Smoking Status: Tobacco use Status Tobacco use date assessed 04/25/24 04/25/24 10:41 Patient Tobacco Use Status Former Tobacco user (quit 28 04/25/24 10:41 years ago ) Tobacco use type Cigarette 04/25/24 10:41 e-Cigarette/Vaping Use Never Used 04/25/24 10:41 PHQ-9: PHQ-9 Score PHQ-9: Total score 0 04/25/24 11:04 Depression Screening Interpretation: Negative Thrive Assessment: Date of Thrive Assessment Date Thrive assessed 04/25/24 04/25/24 10:41 Currently or been in a relationship where the following occur: No concerns reported Const General: cooperative, comfortable and no acute distress Orientation/consciousness: patient oriented x3 HENMT Head: Yes normocephalic and Yes atraumatic Eyes General: appearance normal, both eyes and all related structures Pupils: Equal, round and reactive pupils present EOM: EOMs intact bilaterally Neck Neck: Yes supple and No lymphadenopathy Thyroid: Thyroid normal Lymphatic: no lymphadenopathy noted Resp Effort & Inspection: normal respiratory effort and able to speak in complete sentences Auscultation: clear to auscultation bilaterally Cardio Heart sounds: S1 normal heart sound present and S2 normal heart sound present GI Palpation (GI): Soft to palpation and nontender Auscultation: normal bowel sounds General: Yes no CVA tenderness Back/Spine/Pelvis Back: no CVA tenderness Skin Other: Scaly round raised patch size of quarter left axillary area General skin exam: elasticity normal and turgor normal Neuro General: patient oriented x3 and gait normal Cranial nerves: Yes Equal, round and reactive pupils present Speech: No Abnormal speech present Sensory Exam: No Sensory deficit (Neuro) Coordination: tandem gait normal and Romberg test negative Extrem General: Yes normal exam except as noted and No edema Coding Level of Care Code Est Pt Level 3 (26613) Est Pt Prev Care 40-64y(10948) Diagnoses Encounter for general adult medical examination with abnormal findings Z00.01 Skin lesion L98.9 Anxiety, generalized F41.1 Moderate persistent asthma without complication J45.40 Asthma complication type: uncomplicated Class 1 obesity due to excess calories with serious comorbidity and body mass index (BMI) of 34.0 to 34.9 in adult E66.09; Z68.34 Body mass index: BMI 34.0-34.9 Obesity classification: adult class 1 (BMI 30 - 34.9) Serious obesity comorbidity presence: with serious comorbidity Lipid disorder E78.9 Impaired fasting blood sugar R73.01 Additional Codes CAROLINA-7 Assessment Billing - CAROLINA-7 Assessment Tool: CAROLINA-7 Assessment 53664 ([id number]) PHQ-9 - 29518 - PHQ-9 Billing: Yes ([id number]) Assessment & Plan Assessment & Plan (1) Encounter for general adult medical examination with abnormal findings: Code(s): Z00.01 - Encounter for general adult medical examination with abnormal findings Category: Medical (2) Skin lesion: Code(s): L98.9 - Disorder of the skin and subcutaneous tissue, unspecified Category: Medical (3) Anxiety, generalized: Code(s): F41.1 - Generalized anxiety disorder Category: Medical (4) Asthma, moderate persistent: Code(s): J45.40 - Moderate persistent asthma, uncomplicated Category: Medical Qualifiers: Asthma complication type: uncomplicated Qualified Code(s): J45.40 - Moderate persistent asthma, uncomplicated (5) Obesity due to excess calories: Code(s): E66.09 - Other obesity due to excess calories Category: Medical Qualifiers: Body mass index: BMI 34.0-34.9 Obesity classification: adult class 1 (BMI 30 - 34.9) Serious obesity comorbidity presence: with serious comorbidity Qualified Code(s): E66.09 - Other obesity due to excess calories; Z68.34 - Body mass index [BMI] 34.0-34.9, adult (6) Lipid disorder: Code(s): E78.9 - Disorder of lipoprotein metabolism, unspecified Category: Medical (7) Impaired fasting blood sugar: Code(s): R73.01 - Impaired fasting glucose Category: Medical Plan Patient is a 58-year-old female came in today for physical exam Colonoscopy was at age [address] Robles next 1 will be at 62 years of age Labs done this month reviewed Lipids are well-controlled now Patient has developed a dry patch which is located left axillary area And is getting bigger, and is raised. She need to see a Dermatology, referral placed OBGYN visit was March of last year Medication list reviewed Order for next set of lab placed to be done in six-month with visit BMI is elevated patient is trying lose weight Breast exam was declined Orders: Orders Complete Blood Count Auto Diff 6 Months E66.09 - Other obesity due to excess calories, E78.9 - Disorder of lipoprotein metabolism, unspecified, F41.1 - Generalized anxiety disorder, J45.40 - Moderate persistent asthma, uncomplicated, L98.9 - Disorder of the skin and subcutaneous tissue, unspecified, R73.01 - Impaired fasting glucose, Z00.01 - Encounter for general adult medical examination with abnormal findings, Z68.34 - Body mass index [BMI] 34.0-34.9, adult Comprehensive [place]. Panel Fast 6 Months E66.09 - Other obesity due to excess calories, E78.9 - Disorder of lipoprotein metabolism, unspecified, F41.1 - Generalized anxiety disorder, J45.40 - Moderate persistent asthma, uncomplicated, L98.9 - Disorder of the skin and subcutaneous tissue, unspecified, R73.01 - Impaired fasting glucose, Z00.01 - Encounter for general adult medical examination with abnormal findings, Z68.34 - Body mass index [BMI] 34.0-34.9, adult Lipid Panel 6 Months E66.09 - Other obesity due to excess calories, E78.9 - Disorder of lipoprotein metabolism, unspecified, F41.1 - Generalized anxiety disorder, J45.40 - Moderate persistent asthma, uncomplicated, L98.9 - Disorder of the skin and subcutaneous tissue, unspecified, R73.01 - Impaired fasting glucose, Z00.01 - Encounter for general adult medical examination with abnormal findings, Z68.34 - Body mass index [BMI] 34.0-34.9, adult Referrals Dermatology Referral L98.9 - Disorder of the skin and subcutaneous tissue, unspecified
== END 2024-04-25 11:03 | disposition home or self-care (01) ==
PROVIDERS: PCP Internal Medicine; Visit Provider Internal Medicine
DX: Z00.00 Encounter for general adult medical examination without abnormal findings (principal); L98.9 Disorder of the skin and subcutaneous tissue, unspecified; F41.1 Generalized anxiety disorder; J45.40 Moderate persistent asthma, uncomplicated; E66.09 Other obesity due to excess calories; Z68.34 Body mass index [BMI] 34.0-34.9, adult; E78.9 Disorder of lipoprotein metabolism, unspecified; R73.01 Impaired fasting glucose

== ENCOUNTER → 2024-04-25 10:25 | Outpatient (BNVA) | payer BC, SELFPAY | PROVIDERS: PCP Internal Medicine; Visit Provider Internal Medicine | DX: Z00.01 Encounter for general adult medical examination with abnormal findings (principal); L98.9 Disorder of the skin and subcutaneous tissue, unspecified; F41.1 Generalized anxiety disorder; J45.40 Moderate persistent asthma, uncomplicated; E66.09 Other obesity due to excess calories; Z68.34 Body mass index [BMI] 34.0-34.9, adult; E78.9 Disorder of lipoprotein metabolism, unspecified; R73.01 Impaired fasting glucose | CPT/HCPCS: 96127 ==

== ENCOUNTER 2024-10-17 07:47 | Outpatient (REF) | payer BC, SELFPAY ==
[2024-10-17 10:33] LABS: MANUAL DIFF FLAG NO
[2024-10-17 10:46] LABS: Basophils Absolute Auto 0.1 X10*3/uL (0.0-0.2); Basophils Percent Auto 0.7 % (0-2); Eosinophils Absolute Auto 0.7 X10*3/uL (0.0-0.4); Eosinophils Percent Auto 9.7 % (0-4); Hematocrit 41.8 % (37.0-47.0); Hemoglobin 13.7 g/dl (12.0-16.0); Imm Gran Abs Auto 0.02 X10*3/uL (0.00-0.03); Imm Gran Pct Auto 0.3 % (0.0-0.4); Lymphocytes Absolute Auto 1.9 X10*3/uL (1.2-4.9); Mean Corpuscular HGB Conc 32.8 g/dl (31.0-35.0); Mean Corpuscular Hemoglobin 31.6 pg (27.0-33.0); Mean Corpuscular Volume 96.5 fL (80.0-98.0); Monocytes Absolute Auto 0.5 X10*3/uL (0.1-1.2); Neutrophils Absolute Auto 3.8 x10*3/uL (2.0-8.3); Neutrophils Percent Auto 55.3 % (45-73); Platelet Count 199 X10*3/uL (160-400); Red Blood Count 4.33 X10*6/uL (4.20-5.50); Red Cell Distribution Width 13.4 % (11.0-16.0); White Blood Count 6.9 X10*3/uL (4.8-10.8)
[2024-10-17 11:12] LABS: Alanine Aminotransferase 30 U/L (0-31); Albumin Level 4.4 g/dL (3.5-5.0); Alkaline Phosphatase 74 U/L (39-117); Anion Gap 12 (12-20); Aspartate Amino Transferase 26 U/L (5-31); Bilirubin Total 0.3 mg/dL (0.0-1.0); Blood Urea Nitrogen 19 mg/dL (9-16); Calcium 9.4 mg/dL (8.4-10.2); Carbon Dioxide 26 mmol/L (22-29); Chloride 107 mmol/L (96-108); Cholesterol 209 mg/dL (<200); Estimated Glomerular Filt Rate > 60; Glucose Fasting 93 mg/dL (60-99); Potassium 4.2 mmol/L (3.3-5.1); Sodium 141 mmol/L (135-145); Total Protein 7.3 g/dL (6.5-8.0); Triglycerides 123 mg/dL (<150)
[2024-10-17 12:04] LABS: HDL Cholesterol 84 mg/dL (>40); LDL Cholesterol Calculated 101 mg/dL (<100)
== END 2024-10-17 07:48 | disposition home or self-care (01) ==
LOC: HO.HMGCLDS 07:47
PROVIDERS: PCP Internal Medicine; Visit Provider Internal Medicine
DX: Z00.01 Encounter for general adult medical examination with abnormal findings (principal); J45.40 Moderate persistent asthma, uncomplicated; F41.1 Generalized anxiety disorder; E66.09 Other obesity due to excess calories; Z68.34 Body mass index [BMI] 34.0-34.9, adult; E78.9 Disorder of lipoprotein metabolism, unspecified; R73.01 Impaired fasting glucose; L98.9 Disorder of the skin and subcutaneous tissue, unspecified
CPT/HCPCS: 36415; 80053; 80061; 85025

== ENCOUNTER 2024-10-24 08:47 | Outpatient (AMB) | payer BC, SELFPAY ==
[2024-10-24 08:50] VITALS: BP 122/88; PULSE 97; O2SAT 94; BMI 35.5
--- NOTE | 2024-10-24 08:50 | A.OFFPC_ITS ---
Vital Signs 10/24/24 08:50 Height 5 ft 4 in Weight 207 lb BMI 35.5 BP 122/88 Blood Pressure Location Lt brachial Position Sitting Pulse 97 Pulse Source Pulse Oximeter Pulse Oximetry (%) 94 Oxygen Delivery Method Room Air Intake Visit Reasons: 6 months follow up Allergies No Known Allergies Allergy (Verified 10/24/24 08:50) Environmental Allergy (Unknown, Uncoded 10/24/24 08:50) congestion Medication List - Last Reconciled 10/24/24 by Mart Watson MD fluticasone propion-salmeterol 250-50 mcg/dose (Advair Diskus) 1 inh inhalation BID rosuvastatin 5 mg PO DAILY sertraline 25 mg PO DAILY 90 days Tobacco use date assessed: 10/24/24 Dental Screening Dental Screen Date: 10/24/24 Did you have a dental visit in the last 12 months?: Yes Did you have a dental problem in the last 6 months where you did not have access to dental care?: No Was dental information given to patient?: Patient has dentist HPI 6 months follow up HPI Details History - The patient is a 58-year-old female pr esenting for six-month follow-up appointment - The patient reports experiencing arthr itis, with primary symptoms in the right hand and elbow, especially during bad weather conditions, causing soreness and reduced strength during activities involving her computer mouse. These symptoms are more pronounced with the use of the right hand. - The patient acknowledges that avoiding activity when poor weather is anticipated reduces symptoms. - Arthritis symptoms have included persi stent, annoying, gnawing pain, but are not considered unbearable. - The patient manages arthritis symptoms with otdb-eqs-koykejc Aleve, taken with breakfast on days with heightened discomfort. - Recent laboratory tests were conducted , revealing normal complete blood count with no anemia or inflammation, normal electrolytes, normal kidney functions, normal sugar levels, normal liver enzymes, and well-controlled cholesterol levels. - The patient is no longer taking sertra line for mood and has reported episodes of irritability but prefers not to resume the medication. - Rosuvastatin 5 mg is taken for hyperli pidemia, and Advair is taken once daily for asthma, both reportedly effective. - she is also having allergy shots throu gh Dr. Juares's office and need a new referral placed for that Problem List - Arthritis, unspecified location - Asthma - Hyperlipidemia - allergies getting allergy shots Patient Instructions - Use Aleve with breakfast on days when arthritis discomfort is noticeable. - Use warm olive oil for hand and elbow massage to increase blood circulation and alleviate symptoms. - Engage in home exercises during inclem ent weather to avoid boredom and maintain physical activity. - Schedule and attend the next blood jasbir t as previously arranged. Review of Systems - General: No fever no chills - Neurological: No headaches no dizziness - Ear nose throat: No sore throat no hearing difficulty no ear pain - Cardiovascular: No syncope, no chest pain, no palpitations - Gastrointestinal: No nausea vomiting or diarrhea - Endocrine: No polyuria polydipsia no heat intolerance - Genitourinary: No dysuria , no blood in urine Physical Exam General: No acute distress HEENT: No acute findings Neck: Supple Respiratory system: Able to talk in full sentences, no audible wheeze Cardiovascular: S1-S2 regular in rate and rhythm Gastrointestinal: No pain Extremities: Right elbow and right hand soreness with rainy weather, full range of motion, both in hands and elbow HEEL SEAM RUBBER: Alert awake oriented x3 motor sensory intact Skin: [facility] Social History Housing: House Patient Tobacco Use Status: Former Tobacco user (quit 28 years ago ) Tobacco use type: Cigarette Years Smoked: 5 years e-Cigarette/Vaping Use: Never Used service: No Current occupational status: employed Cognitive needs: No Hearing needs: No Vision needs: No Questionnaire PHQ-9 Over the last 2 weeks, how often have you been bothered by any of the following problems? 1. Little interest or pleasure in doing things: not at all 2. Feeling down, depressed, or hopeless: not at all 3. Trouble falling or staying asleep, or sleeping too much: not at all 4. Feeling tired or having little energy: not at all 5. Poor appetite or overeating: not at all 6. Feeling bad about yourself - or that you are a failure or have let yourself or your family down: not at all 7. Trouble concentrating on things, such as reading the newspaper or watching television: not at all 8. Moving or speaking so slowly that other people could have noticed. Or the opposite - being so fidgety or restless that you have been moving around a lot more than usual: not at all 9. Thoughts that you would be better off or of hurting yourself in some way: not at all Total score: 0 Depression Screening Interpretation: Negative Depression Screening Done: Yes 99440 - PHQ-9 Billing: Yes Source: Developed by Drs. Louie Ugalde, Irma Baldwin, Rayray Meier and colleagues, with an educational cuco from [employer]. Thrive Questionnaire Date Thrive assessed: 10/24/24 I am a: Patient What is your living situation today?: I have a steady place to live Within the past 12 months, did the food you bought not last and you didn't have the money to get more?: Never true Within the past 12 months, did you worry whether your food would run out before you got money to buy more?: Never true Do you have trouble paying for medicines?: No Do you have trouble getting transportation to medical appointments?: No Do you have trouble paying your heating and electricity bill?: No Do you have trouble taking care of your child, family member or friend?: No Do you have trouble with day-to-day activities such as bathing, preparing meals, shopping, managing finances, etc.?: No Are you currently unemployed and looking for a job?: No Are you interested in more education?: No Please select the resources that you would like help with: None Currently or been in a relationship where the following occur: No concerns reported THRIVE Score: 0 AUDIT C Alcohol Use Questionnaire (AUDIT-C) 1. How often do you have a drink containing alcohol?: 2-3 times a week 2. How many drinks containing alcohol do you have on a typical day when you are drinking?: 1 or 2 3. How often do you have six or more drinks on one occasion?: Never Total Score: 3 Score Reviewed/Action Taken: Yes CAROLINA-7 AMB Questionnaire CAROLINA-7 Date CAROLINA - 7 assessed: 10/24/24 Feeling nervous, anxious, or on edge: 0 = Not at all Not being able to stop or control worryin = Not at all Worrying too much about different things: 0 = Not at all Trouble relaxin = Not at all Being so restless that it is hard to sit still: 0 = Not at all Becoming easily annoyed or irritable: 0 = Not at all Feeling afraid as if something awful might happen: 0 = Not at all Total CAROLINA-7 score (0-4 normal; 5-9 mild; 10-14 moderate; 15-21 severe): 0 Source: Developed by Drs. Louie Ugalde, Irma Baldwin, Rayrya Meier and colleagues, with an educational cuco from [employer]. CAROLINA-7 Assessment Billing CAROLINA-7 Assessment Tool: CAROLINA-7 Assessment 76163 Physical exam (Primary Care) Vital Signs: Last Vital Signs Pulse 97 10/24/24 08:50 BP 122/88 10/24/24 08:50 Pulse Ox 94 10/24/24 08:50 Oxygen Delivery Method Room Air 10/24/24 08:50 BMI result Body Mass Index 35.5 Tobacco/Smoking Status: Tobacco use Status Tobacco use date assessed 10/24/24 10/24/24 08:51 Patient Tobacco Use Status Former Tobacco user (quit 28 10/24/24 08:51 years ago ) Tobacco use type Cigarette 10/24/24 08:51 e-Cigarette/Vaping Use Never Used 10/24/24 08:51 PHQ-9: PHQ-9 Score PHQ-9: Total score 0 10/24/24 11:50 Depression Screening Interpretation: Negative Thrive Assessment: Date of Thrive Assessment Date Thrive assessed 10/24/24 10/24/24 08:51 Currently or been in a relationship where the following occur: No concerns reported Coding Level of Care Code Est Pt Level 4 (37446) Diagnoses Moderate persistent asthma without complication J45.40 Asthma severity: moderate Asthma persistence: persistent Asthma complication type: uncomplicated Lipid disorder E78.9 Class 1 obesity due to excess calories with serious comorbidity and body mass index (BMI) of 34.0 to 34.9 in adult E66.09; Z68.34 Body mass index: BMI 34.0-34.9 Obesity classification: adult class 1 (BMI 30 - 34.9) Serious obesity comorbidity presence: with serious comorbidity Environmental allergies Z91.09 Chronic nasal congestion R09.81 Additional Codes CAROLINA-7 Assessment Billing - CAROLINA-7 Assessment Tool: CAROLINA-7 Assessment 40109 ([id number]) PHQ-9 - 04199 - PHQ-9 Billing: Yes ([id number]) Assessment & Plan Assessment & Plan (1) Asthma: Code(s): J45.909 - Unspecified asthma, uncomplicated Category: Medical Qualifiers: Asthma severity: moderate Asthma persistence: persistent Asthma complication type: uncomplicated Qualified Code(s): J45.40 - Moderate persistent asthma, uncomplicated (2) Lipid disorder: Code(s): E78.9 - Disorder of lipoprotein metabolism, unspecified Category: Medical (3) Obesity due to excess calories: Code(s): E66.09 - Other obesity due to excess calories Category: Medical Qualifiers: Body mass index: BMI 34.0-34.9 Obesity classification: adult class 1 (BMI 30 - 34.9) Serious obesity comorbidity presence: with serious comorbidity Qualified Code(s): E66.09 - Other obesity due to excess calories; Z68.34 - Body mass index [BMI] 34.0-34.9, adult (4) Environmental allergies: Code(s): Z91.09 - Other allergy status, other than to drugs and biological substances Category: Medical (5) Chronic nasal congestion: Code(s): R09.81 - Nasal congestion Category: Medical Plan History - The patient is a 58-year-old female presenting for six-month follow-up appointment - The patient reports experiencing arthritis, with primary symptoms in the right hand and elbow, especially during bad weather conditions, causing soreness and reduced strength during activities involving her computer mouse. These symptoms are more pronounced with the use of the right hand. - The patient acknowledges that avoiding activity when poor weather is anticipated reduces symptoms. - Arthritis symptoms have included persistent, annoying, gnawing pain, but are not considered unbearable. - The patient manages arthritis symptoms with hilm-dql-lhumilw Aleve, taken with breakfast on days with heightened discomfort. - Recent laboratory tests were conducted, revealing normal complete blood count with no anemia or inflammation, normal electrolytes, normal kidney functions, normal sugar levels, normal liver enzymes, and well-controlled cholesterol levels. - The patient is no longer taking sertraline for mood and has reported episodes of irritability but prefers not to resume the medication. - Rosuvastatin 5 mg is taken for hyperlipidemia, and Advair is taken once daily for asthma, both reportedly effective. - she is also having allergy shots through Dr. Juares's office and need a new referral placed for that Problem List - Arthritis, unspecified location - Asthma - Hyperlipidemia - allergies getting allergy shots Patient Instructions - Use Aleve with breakfast on days when arthritis discomfort is noticeable. - Use warm olive oil for hand and elbow massage to increase blood circulation and alleviate symptoms. - Engage in home exercises during inclement weather to avoid boredom and maintain physical activity. - Schedule and attend the next blood test as previously arranged. Orders: Orders Comprehensive Tolstoy. Panel Fast 5 Months E66.09 - Other obesity due to excess calories, E78.9 - Disorder of lipoprotein metabolism, unspecified, J45.909 - Unspecified asthma, uncomplicated, Z68.34 - Body mass index [BMI] 34.0-34.9, adult Lipid Panel 5 Months E66.09 - Other obesity due to excess calories, E78.9 - Disorder of lipoprotein metabolism, unspecified, J45.909 - Unspecified asthma, uncomplicated, Z68.34 - Body mass index [BMI] 34.0-34.9, adult Referrals Ear/Nose/Throat Referral R09.81 - Nasal congestion, Z91.09 - Other allergy status, other than to drugs and biological substances Medications: Discontinued sertraline Discontinued Reason: Doctor's Order 25 mg PO DAILY 90 days 90 tabs 1RF
== END 2024-10-24 11:50 | disposition home or self-care (01) ==
LOC: HO.HMCC 08:48
PROVIDERS: PCP Internal Medicine; Visit Provider Internal Medicine
DX: J45.40 Moderate persistent asthma, uncomplicated (principal); E78.9 Disorder of lipoprotein metabolism, unspecified; E66.09 Other obesity due to excess calories; Z68.34 Body mass index [BMI] 34.0-34.9, adult; Z91.09 Other allergy status, other than to drugs and biological substances; R09.81 Nasal congestion

== ENCOUNTER → 2024-10-24 08:47 | Outpatient (BNVA) | payer BC, SELFPAY | PROVIDERS: PCP Internal Medicine; Visit Provider Internal Medicine | DX: J45.40 Moderate persistent asthma, uncomplicated (principal); E78.5 Hyperlipidemia, unspecified; E66.09 Other obesity due to excess calories; Z68.34 Body mass index [BMI] 34.0-34.9, adult; R09.81 Nasal congestion; Z79.899 Other long term (current) drug therapy; Z91.09 Other allergy status, other than to drugs and biological substances | CPT/HCPCS: 96127 ==

== ENCOUNTER 2025-02-01 09:53 | Outpatient (AMB) | payer BC, SELFPAY ==
--- OUTSIDE RECORDS SUMMARY | 2025-02-01 11:14 | XMS_ITS | Patient Health Record ---
Author Organization [facility] Address [address] [place] [address] Care Team Providers Care Fountain Dispenser Name Role Phone Walter KUO, Asma Primary Care Provider Unavailabl e Black, Melia Unavailable [phone] Reason For Referral No Information Problems Problem Type SNOMED Code ICD Code Onset Dates Problem Status W/U Status Risk Notes Problem Onychomycosis (735151700) Onychomycosis (110.1) Active confirmed Problem Pain in Limb (729.5) Active confirmed Plan Of Treatment Pending Test Test Name Order Date *Liver Function Test (LFT) 08/24/2012 Insurance Providers Payer Name Payer Address Payer Phone Subscriber Number Group Number Insured Name Patient Relationship to Insured Coverage Start Date Coverage End Date [facility] [address] [place] [address] [id number] Saba Fernandez Self - patient is the insured Medical (General) History Medical History History ICD Code asthma chronic sinusitis Surgical History Surgery Date(Month/Year) nasal polyps 08/29/2011
--- OUTSIDE RECORDS SUMMARY | 2025-02-01 11:15 | XMS_ITS | Patient Health Record ---
Author Organization [facility] Address [address] [place] [address] Care Team Providers Care Manager Harbor Name Role Phone Walter KUO, Asma Primary Care Provider Richard Escalona Jr Reason For Referral No Information Medications Medication SIG (Take, Route, Frequency, Duration) Notes Start Date End Date Status ibuprofen 1 tab Oral as needed Active Advair Diskus 100-50 MCG/DOSE INHALE 1 PUFF BY MOUTH TWICE A DAY Inhalation for 30 Active Sertraline HCl 25 MG TAKE 1 TABLET BY [facility] EVERY DAY Oral for 60 Active Colyte with Flavor Packs 240 GM As directed Orally Over the specified time. for 1 day(s) 07/28/2018 Active Immunizations Vaccine Route Administration Date Status Comme nts Influenza Unknown 07/28/2018 Refused Social History Tobacco Use: Social History Observation Description Date Details (start date - stop date) Never Smoker NA - NA Tobacco Use/Smoking Question Answer Notes Patient is a nonsmoker Alcohol Screen Question Answer Notes Did you have a drink contain ing alcohol in the past year? Yes How often did you have a dri nk containing alcohol in the past year? 2 to 3 times a week (3 points) How many drinks did you have on a typical day when you were drinking in the past year? 1 or 2 drinks (0 point) How often did you have 6 or more drinks on one occasion in the past year? Never (0 point) Points 3 Interpretation Positive Problems Problem Type SNOMED Code ICD Code Onset Dates Problem Status W/U Status Risk Notes Problem 897721854 Colon cancer screening (Z12.11) Active confirmed Problem 84443099 Encounter for other preprocedural examination (Z01.818) Active confirmed Plan Of Treatment Future Test Test Name Order Date COLONOSCOPY 07/28/2018 Insurance Providers Payer Name Payer Address Payer Phone Subscriber Number Group Number Insured Name Patient Relationship to Insured Coverage Start Date Coverage End Date [facility] [address] [place] [address] [id number] 200 OLINDA CARPIO Self - patient is the insured Medical (General) History Medical History History ICD Code Denies [place],DM,CVA,Lung disease,renal dise ase asthma urinary incontinence-mild anxiety Surgical History Surgery Date(Month/Year) nasal polyp 2008
== END 2025-02-01 09:54 | disposition home or self-care (01) ==
LOC: HO.HMGAL 09:53
PROVIDERS: PCP Internal Medicine; Visit Provider Registered Nurse Emergency
DX: J30.89 Other allergic rhinitis (principal)
CPT/HCPCS: 95117; 95165

== ENCOUNTER 2025-03-06 08:40 | Outpatient (REF) | payer BC, SELFPAY ==
--- OUTSIDE RECORDS SUMMARY | 2025-03-06 09:41 | XMS_ITS | Patient Health Record ---
Author Organization [facility] Address [address] [place] [address] Care Team Providers Care Sales Training Manager Name Role Phone Walter KUO, Asma Primary Care Provider Richard Escalona Jr Reason For Referral No Information Medications Medication SIG (Take, Route, Frequency, Duration) Notes Start Date End Date Status ibuprofen 1 tab Oral as needed Active Advair Diskus 100-50 MCG/DOSE INHALE 1 PUFF BY MOUTH TWICE A DAY Inhalation for 30 Active Sertraline HCl 25 MG TAKE 1 TABLET BY [facility] EVERY DAY Oral for 60 Active Colyte [...] Problem Status W/U Status Risk Notes Problem 554966391 Colon cancer screening (Z12.11) Active confirmed Problem 70728248 Encounter for other preprocedural examination (Z01.818) Active confirmed Plan Of Treatment Future Test Test Name Order Date COLONOSCOPY 07/28/2018 Insurance Providers Payer Name Payer Address Payer Phone Subscriber Number Group Number Insured Name Patient Relationship to Insured Coverage Start Date Coverage End Date [facility] [address] [place] [address] [id number] OLINDA CARPIO Self - patient is the insured Medical (General) History Medical History History ICD Code Denies [place],DM,CVA,Lung disease,renal dise ase asthma urinary incontinence-mild anxiety Surgical History Surgery Date(Month/Year) nasal polyp 2008
--- OUTSIDE RECORDS SUMMARY | 2025-03-06 09:41 | XMS_ITS | Patient Health Record ---
Author Organization [facility] Address [address] [place] [address] Care Team Providers Care Lathe Tender Name Role Phone Walter KUO, Asma Primary Care Provider Unavailabl e Black, Melia Unavailable [phone] Reason For Referral No Information Problems Problem Type SNOMED Code ICD Code Onset Dates Problem Status W/U Status Risk Notes Problem Onychomycosis (598826547) Onychomycosis (110.1) Active confirmed Problem Pain in limb (06699975) Pain in Limb (729.5) Active confirmed Plan Of Treatment Pending Test Test Name Order Date *Liver Function Test (LFT) 08/24/2012 Insurance Providers Payer Name Payer Address Payer Phone Subscriber Number Group Number Insured Name Patient Relationship to Insured Coverage Start Date Coverage End Date [facility] [address] [place] [address] [phone] [id number] Saba Fernandez Self - patient is the insured Medical (General) History Medical History History ICD Code asthma chronic sinusitis Surgical History Surgery Date(Month/Year) nasal polyps 08/29/2011
== END 2025-03-06 08:41 | disposition home or self-care (01) ==
LOC: HO.MAMMO 08:40
PROVIDERS: PCP Internal Medicine; Visit Provider Internal Medicine
DX: Z12.31 Encounter for screening mammogram for malignant neoplasm of breast (principal)
CPT/HCPCS: 77063; 77067

== ENCOUNTER → 2025-03-06 08:45 | Outpatient (BNV) | payer BC, SELFPAY | PROVIDERS: PCP Internal Medicine; Visit Provider Radiology Body Imaging | DX: Z12.31 Encounter for screening mammogram for malignant neoplasm of breast (principal) | CPT/HCPCS: 77063; 77067 ==

== ENCOUNTER 2025-03-07 09:44 | Outpatient (AMB) | payer BC, SELFPAY ==
--- OUTSIDE RECORDS SUMMARY | 2025-03-07 11:48 | XMS_ITS | Patient Health Record ---
Author Organization [facility] Address [address] [place] [address] Care Team Providers Care Database Consultant Name Role Phone Walter KUO, Asma Primary Care Provider Richard Escalona Jr [phone] Reason For Referral No Information Medications Medication SIG (Take, Route, Frequency, Duration) Notes Start Date End Date Status ibuprofen 1 tab Oral as needed Active Advair Diskus 100-50 MCG/DOSE INHALE 1 PUFF BY MOUTH TWICE A DAY Inhalation for 30 Active Sertraline HCl 25 MG TAKE 1 TABLET BY [facility] EVERY DAY Oral for 60 Active Colyte [...] Problem Status W/U Status Risk Notes Problem 757525603 Colon cancer screening (Z12.11) Active confirmed Problem 32636039 Encounter for other preprocedural examination (Z01.818) Active confirmed Plan Of Treatment Future Test Test Name Order Date COLONOSCOPY 07/28/2018 Insurance Providers Payer Name Payer Address Payer Phone Subscriber Number Group Number Insured Name Patient Relationship to Insured Coverage Start Date Coverage End Date [facility] [address] [place] [address] [id number] 200 OLINDA CARPIO Self - patient is the insured Medical (General) History Medical History History ICD Code Denies MD,DM,CVA,Lung disease,renal dise ase asthma urinary incontinence-mild anxiety Surgical History Surgery Date(Month/Year) nasal polyp 2008
--- OUTSIDE RECORDS SUMMARY | 2025-03-07 11:48 | XMS_ITS | Patient Health Record ---
Author Organization [facility] Address [address] [place] [address] Care Team Providers Care Rail Manager Name Role Phone Walter KUO, Asma Primary Care Provider Unavailabl e Black, Melia Unavailable [phone] Reason For Referral No Information Problems Problem Type SNOMED Code ICD Code Onset Dates Problem Status W/U Status Risk Notes Problem Onychomycosis (664337175) Onychomycosis (110.1) Active confirmed Problem Pain in limb (73950713) Pain in Limb (729.5) Active confirmed Plan Of Treatment Pending Test Test Name Order Date *Liver Function Test (LFT) 08/24/2012 Insurance Providers Payer Name Payer Address Payer Phone Subscriber Number Group Number Insured Name Patient Relationship to Insured Coverage Start Date Coverage End Date [facility] [address] [place] [address] [phone] [id number] Saba Fernandez Self - patient is the insured Medical (General) History Medical History History ICD Code asthma chronic sinusitis Surgical History Surgery Date(Month/Year) nasal polyps 08/29/2011
== END 2025-03-07 09:48 | disposition home or self-care (01) ==
LOC: HO.HMGAL 09:44
PROVIDERS: PCP Internal Medicine; Visit Provider Registered Nurse Emergency
DX: J30.89 Other allergic rhinitis (principal)
CPT/HCPCS: 95117; 95165

== ENCOUNTER 2025-04-04 10:10 | Outpatient (AMB) | payer BC, SELFPAY | END 2025-04-04 10:11 | disposition home or self-care (01) | LOC: HO.HMGAL 10:10 | PROVIDERS: PCP Internal Medicine; Visit Provider Registered Nurse Emergency | DX: J30.89 Other allergic rhinitis (principal) | CPT/HCPCS: 95117; 95165 ==

== ENCOUNTER 2025-04-11 11:26 | Outpatient (REF) | payer BC, SELFPAY ==
--- NOTE | ~2025-04-11 | MM_ITS ---
EXAMINATION: MM DIAGNOSTIC DIGITAL BREAST TOMOSYNTHESIS, LEFT Limited left breast ultrasound. CLINICAL INFORMATION: Call back from screening for asymmetry in the lateral left breast anterior depth on CC view. COMPARISON: Mammography: Prior's on PACS. TECHNIQUE: Digital breast tomosynthesis is performed in both the craniocaudal and mediolateral oblique views along with computer-aided detection (CAD). Synthesized 2D images are generated from the tomosynthesis. FINDINGS: The breasts are heterogeneously dense, which may obscure small masses. Asymmetry in the lateral left breast anterior depth on CC view does not persist on additional imaging projections and likely represented overlapping breast tissue. There are no significant masses, abnormal calcifications, or other abnormalities. Targeted color Doppler ultrasound scanning from 10- 4:00 in the superior breast demonstrates normal fibroglandular breast tissue. There is an incidental hypoechoic circumscribed solid mass versus complicated cyst at 1:00 2 cm from the nipple measuring 5 x 5 x 3 mm. MM/MM tomosynthesis added views L IMPRESSION: Incidental solid mass versus complicated cyst at 1:00 2 cm from the nipple in the left breast on ultrasound. Recommend 6 month follow-up for further evaluation of stability. ASSESSMENT: BI-RADS Category 3: Probably benign RECOMMENDATION: 6 Month F/U Results were provided to the patient at time of visit by the technologist. This patient's information was entered into a reminder system with a target due date for their next mammogram. Electronically signed by: Shama Moore DO 04/11/2025 12:31 PM EDT
--- OUTSIDE RECORDS SUMMARY | 2025-04-11 14:41 | XMS_ITS | Patient Health Record ---
Author Organization [facility] Address [address] [place] [address] Care Team Providers Care Hogshead Hand Name Role Phone Walter KUO, Asma Primary Care Provider Unavailabl e Black, Melia Unavailable [phone] Reason For Referral No Information Problems Problem Type SNOMED Code ICD Code Onset Dates Problem Status W/U Status Risk Notes Problem Onychomycosis (627040881) Onychomycosis (110.1) Active confirmed Problem Pain in limb (72530868) Pain in Limb (729.5) Active confirmed Plan Of Treatment Pending Test Test Name Order Date *Liver Function Test (LFT) 08/24/2012 Insurance Providers Payer Name Payer Address Payer Phone Subscriber Number Group Number Insured Name Patient Relationship to Insured Coverage Start Date Coverage End Date [facility] [address] [place] [address] [id number] Saba Fernandez Self - patient is the insured Medical (General) History Medical History History ICD Code asthma chronic sinusitis Surgical History Surgery Date(Month/Year) nasal polyps 08/29/2011
--- OUTSIDE RECORDS SUMMARY | 2025-04-11 14:42 | XMS_ITS | Patient Health Record ---
Author Organization [facility] Address [address] [place] [address] Care Team Providers Care Behavioral Health Clinician Name Role Phone Walter [facility]UO, [facility] Primary Care Provider Richard Escalona Jr Reason For Referral No Information Medications Medication SIG (Take, Route, Frequency, Duration) Notes Start Date End Date Status ibuprofen 1 tab Oral as needed Active Advair Diskus 100-50 MCG/DOSE INHALE 1 PUFF BY MOUTH TWICE A DAY Inhalation; Duration: 30 Active Sertraline HCl 25 MG TAKE 1 TABLET BY [facility] EVERY DAY Oral; Duration: 60 Active Colyte with Flavor Packs 240 GM As directed Orally Over the specified time.; Duration: 1 day(s) 07/28/2018 Active Immunizations Vaccine Route [...] Problem Status W/U Status Risk Notes Problem Colon cancer screening (059545935) Colon cancer screening (Z12.11) Active confirmed Problem Pre-procedure evaluation check (042122024) Encounter for other preprocedural examination (Z01.818) Active confirmed Plan Of Treatment Future Test Test Name Order Date COLONOSCOPY 07/28/2018 Insurance Providers Payer Name Payer Address Payer Phone Subscriber Number Group Number Insured Name Patient Relationship to Insured Coverage Start Date Coverage End Date [facility] [address] [place] [address] [id number] 200 OLINDA CARPIO Self - patient is the insured Medical (General) History Medical History History ICD Code Denies [place],DM,CVA,Lung disease,renal dise ase asthma urinary incontinence-mild anxiety Surgical History Surgery Date(Month/Year) nasal polyp 2009
== END 2025-04-11 11:27 | disposition home or self-care (01) ==
LOC: HO.MAMMO 11:26
PROVIDERS: PCP Internal Medicine; Visit Provider Internal Medicine
DX: N64.89 Other specified disorders of breast (principal)
CPT/HCPCS: 76642; 77061; 77065

== ENCOUNTER → 2025-04-11 11:30 | Outpatient (BNV) | payer BC, SELFPAY | PROVIDERS: PCP Internal Medicine; Visit Provider Internal Medicine | DX: R92.8 Other abnormal and inconclusive findings on diagnostic imaging of breast (principal) | CPT/HCPCS: 76642; 77061; 77065 ==

== ENCOUNTER 2025-04-25 06:18 | Outpatient (REF) | payer BC, SELFPAY ==
--- OUTSIDE RECORDS SUMMARY | 2025-04-25 06:20 | XMS_ITS | Patient Health Record ---
Author Organization [facility] Address [address] [place] [address] Care Team Providers Care Die Sizer Name Role Phone Walter KUO, [facility] Primary Care Provider Richard Escalona Jr Reason For Referral No Information Medications Medication SIG (Take, Route, Frequency, Duration) Notes Start Date End Date Status ibuprofen 1 tab Oral as needed Active Advair Diskus 100-50 MCG/DOSE INHALE 1 PUFF BY MOUTH TWICE A DAY Inhalation; Duration: 30 Active Sertraline HCl 25 MG TAKE 1 TABLET BY [facility] EVERY DAY Oral; Duration: 60 Active Colyte [...] Status Risk Notes Problem Colon cancer screening (629152664) Colon cancer screening (Z12.11) Active confirmed Problem Pre-procedure evaluation check (962841380) Encounter for other preprocedural examination (Z01.818) Active confirmed Plan Of Treatment Future Test Test Name Order Date COLONOSCOPY 07/28/2018 Insurance Providers Payer Name Payer Address Payer Phone Subscriber Number Group Number Insured Name Patient Relationship to Insured Coverage Start Date Coverage End Date [facility] [employer] [facility] [address] [place] [address] [id number] 200 OLINDA CARPIO Self - patient is the insured Medical (General) History Medical History History ICD Code Denies [place],DM,CVA,Lung disease,renal dise ase asthma urinary incontinence-mild anxiety Surgical History Surgery Date(Month/Year) nasal polyp 2009
--- OUTSIDE RECORDS SUMMARY | 2025-04-25 06:20 | XMS_ITS | Patient Health Record ---
Author Organization [facility] Address [address] [place] [address] Care Team Providers Care Business Intelligence Engineer Name Role Phone Walter KUO, Asma Primary Care Provider Unavailabl e Black, Melia Unavailable [phone] Reason For Referral No Information Problems Problem Type SNOMED Code ICD Code Onset Dates Problem Status W/U Status Risk Notes Problem Onychomycosis (287412223) Onychomycosis (110.1) Active confirmed Problem Pain in limb (38188497) Pain in Limb (729.5) Active confirmed Plan Of Treatment Pending Test Test Name Order Date *Liver Function Test (LFT) 08/24/2012 Insurance Providers Payer Name Payer Address Payer Phone Subscriber Number Group Number Insured Name Patient Relationship to Insured Coverage Start Date Coverage End Date [facility] [address] [place] [address] [id number] Saba Fernandez Self - patient is the insured Medical (General) History Medical History History ICD Code asthma chronic sinusitis Surgical History Surgery Date(Month/Year) nasal polyps 08/29/2011
[2025-04-25 11:31] LABS: Alanine Aminotransferase 31 U/L (0-31); Albumin Level 4.5 g/dL (3.5-5.0); Alkaline Phosphatase 74 U/L (39-117); Anion Gap 13 (12-20); Aspartate Amino Transferase 25 U/L (5-31); Blood Urea Nitrogen 17 mg/dL (9-16); Calcium 9.6 mg/dL (8.4-10.2); Carbon Dioxide 26 mmol/L (22-29); Chloride 108 mmol/L (96-108); Cholesterol 204 mg/dL (<200); Estimated Glomerular Filt Rate > 60; HDL Cholesterol 72 mg/dL (>40); Potassium 4.4 mmol/L (3.3-5.1); Sodium 143 mmol/L (135-145); Total Protein 7.2 g/dL (6.5-8.0); Triglycerides 99 mg/dL (<150)
== END 2025-04-25 06:19 | disposition home or self-care (01) ==
LOC: HO.HMGCLDS 06:18
PROVIDERS: PCP Internal Medicine; Visit Provider Internal Medicine
DX: E78.9 Disorder of lipoprotein metabolism, unspecified (principal); J45.909 Unspecified asthma, uncomplicated; E66.09 Other obesity due to excess calories; Z68.34 Body mass index [BMI] 34.0-34.9, adult
CPT/HCPCS: 36415; 80053; 80061

== ENCOUNTER 2025-05-01 10:28 | Outpatient (AMB) | payer BC, SELFPAY ==
[2025-05-01 10:34] VITALS: BP 114/78; PULSE 104; O2SAT 96; BMI 35.2
--- NOTE | 2025-05-01 10:34 | MHC.PC.OV ---
Vital Signs 05/01/25 10:34 Height 5 ft 4 in Weight 205 lb BMI 35.2 BP 114/78 Blood Pressure Location Lt brachial Position Sitting Pulse 104 H Pulse Oximetry (%) 96 Intake Visit Reasons: PE Wig Sales Consultant Required: No Accompanied by: Self / Same As Patient Allergies No Known Allergies Allergy (Verified 05/01/25 10:36) Environmental Allergy (Unknown, Uncoded 05/01/25 10:36) congestion Medication List - Last Reconciled 05/01/25 by Mart Watson MD fluticasone propion-salmeterol 250-50 mcg/dose (Wixela Inhub) 1 ea PO BID 60 days rosuvastatin 5 mg PO DAILY Tobacco use date assessed: 05/01/25 Dental Screening Dental Screen Date: 05/01/25 Did you have a dental visit in the last 12 months?: Yes Did you have a dental problem in the last 6 months where you did not have access to dental care?: No Was dental information given to patient?: Patient has dentist HPI PE HPI Details History of Present Illness The patient is a 59-year-old female presenting for an annual physical exam. Hyperlipidemia: - The patient is taking rosuvastatin 5 mg for management. - Recent labs showed an LDL cholesterol of 113 or 118, and total cholesterol was described as okay. Asthma: - The patient uses a Wixela inhaler once daily and reports feeling well with this regimen. History of Basal Cell Carcinoma: - The patient had a basal cell carcinoma diagnosed on her abdomen. - She was seen at [facility] on March 16, and a report was sent regarding the finding. - Benign spots on her back were also evaluated during the same visit. Health Maintenance: - A mammogram was performed on April 11, which was normal after requiring additional views for fibrous tissue. - Her last Pap smear was in 2022, and she was advised to contact her SOFTWARE SUPPORT REPRESENTATIVE for follow-up. - She had a screening colonoscopy several years ago, around age 52 or 53, and believes the recommended interval was 10 years. - The office will request the report from Dr. Robles's office, and the patient will also look for her copy at home. - The patient declined the influenza vaccine. [place] of Care - The patient has an SOFTWARE SUPPORT REPRESENTATIVE she will follow up with. - The patient's fly frame tender is Dr. Robles - The patient was seen at [facility]. Diagnostic results - Labs (recent): CBC from October showed good hemoglobin. More recent comprehensive metabolic panel showed normal kidney function, electrolytes, and liver enzymes. Lipid panel showed LDL of 113 or 118, and total cholesterol was okay. - Mammogram (April 11): Normal after additional views were obtained for dense breast tissue. - Pap Smear (2022): Patient advised to contact her SOFTWARE SUPPORT REPRESENTATIVE about the results. - Dermatology Report (March 16): Confirmed diagnosis of basal cell carcinoma on the abdomen. Patient Instructions - Follow up in 6 months for a check-up and in 1 year for your next physical exam. - You will need to have blood tests done before each visit. - Please contact your SOFTWARE SUPPORT REPRESENTATIVE's office to follow up on your Pap smear results from last year. - Please find your old colonoscopy report at home and call our office to provide the date and the results. Review of Systems - General: No fever no chills - Neurological: No headaches no dizziness - Ear nose throat: No sore throat no hearing difficulty no ear pain - Cardiovascular: No syncope, no chest pain, no palpitations - Gastrointestinal: No nausea vomiting or diarrhea - Endocrine: No polyuria polydipsia no heat intolerance - Genitourinary: No dysuria - Skin: No new complaints Physical Exam General: Cooperative, healthy appearing, comfortable, no acute distress Orientation: Patient oriented x3 Limitations: None Head: Normal to inspection Ears: Within normal limit visually Nose: Normal external nose present Face and sinus: Normal facial exam Eyes: Appearance normal, extraocular movement intact pupils reactive Neck: Normal visual inspection and supple Respiratory: Normal respiratory effort and able to speak in complete sentences. Clear to auscultation, no stridor Cardiovascular: S1 and S2 RRR Breast exam declined GI: Normal to inspection. Soft to palpation and nontender. Skin: Turgor normal, no acute findings. Basal cell spot on the stomach, treated Neuro: Patient oriented x3, motor sensory intact, balance intact, tandem pass Extremities: Normal to inspection . [facility] Social History Housing: House Patient Tobacco Use Status: Former Tobacco user (quit 28 years ago ) Tobacco use type: Cigarette Years Smoked: 5 years e-Cigarette/Vaping Use: Never Used service: No Current occupational status: employed Cognitive needs: No Hearing needs: No Vision needs: No Questionnaire PHQ-9 Over the last 2 weeks, how often have you been bothered by any of the following problems? 1. Little interest or pleasure in doing things: not at all 2. Feeling down, depressed, or hopeless: not at all 3. Trouble falling or staying asleep, or sleeping too much: not at all 4. Feeling tired or having little energy: not at all 5. Poor appetite or overeating: not at all 6. Feeling bad about yourself - or that you are a failure or have let yourself or your family down: not at all 7. Trouble concentrating on things, such as reading the newspaper or watching television: not at all 8. Moving or speaking so slowly that other people could have noticed. Or the opposite - being so fidgety or restless that you have been moving around a lot more than usual: not at all 9. Thoughts that you would be better off or of hurting yourself in some way: not at all Total score: 0 Depression Screening Interpretation: Negative Depression Screening Done: Yes 90221 - PHQ-9 Billing: Yes Source: Developed by Drs. Louie Ugalde, Irma Baldwin, Rayray Meier and colleagues, with an educational cuco from [employer]. Thrive Questionnaire Date Thrive assessed: 10/24/24 I am a: Patient What is your living situation today?: I have a steady place to live Within the past 12 months, did the food you bought not last and you didn't have the money to get more?: Never true Within the past 12 months, did you worry whether your food would run out before you got money to buy more?: Never true Do you have trouble paying for medicines?: No Do you have trouble getting transportation to medical appointments?: No Do you have trouble paying your heating and electricity bill?: No Do you have trouble taking care of your child, family member or friend?: No Do you have trouble with day-to-day activities such as bathing, preparing meals, shopping, managing finances, etc.?: No Are you currently unemployed and looking for a job?: No Are you interested in more education?: No Please select the resources that you would like help with: None Currently or been in a relationship where the following occur: No concerns reported THRIVE Score: 0 CAROLINA-7 AMB Questionnaire CAROLINA-7 Date CAROLINA - 7 assessed: 05/01/25 Feeling nervous, anxious, or on edge: 0 = Not at all Not being able to stop or control worryin = Not at all Worrying too much about different things: 0 = Not at all Trouble relaxin = Not at all Being so restless that it is hard to sit still: 0 = Not at all Becoming easily annoyed or irritable: 0 = Not at all Feeling afraid as if something awful might happen: 0 = Not at all Total CAROLINA-7 score (0-4 normal; 5-9 mild; 10-14 moderate; 15-21 severe): 0 Source: Developed by Drs. Louie Ugalde, Irma Baldwin, Rayray Meier and colleagues, with an educational cuco from [employer]. CAROLINA-7 Assessment Billing CAROLINA-7 Assessment Tool: CAROLINA-7 Assessment 23453 Physical exam (Primary Care) Vital Signs: Last Vital Signs Pulse 104 H 05/01/25 10:34 BP 114/78 05/01/25 10:34 Pulse Ox 96 05/01/25 10:34 BMI result Body Mass Index 35.2 Tobacco/Smoking Status: Tobacco use Status Tobacco use date assessed 05/01/25 05/01/25 10:40 Patient Tobacco Use Status Former Tobacco user (quit 28 05/01/25 10:40 years ago ) Tobacco use type Cigarette 05/01/25 10:40 e-Cigarette/Vaping Use Never Used 05/01/25 10:40 PHQ-9: PHQ-9 Score PHQ-9: Total score 0 05/01/25 10:40 Depression Screening Interpretation: Negative Thrive Assessment: Date of Thrive Assessment Date Thrive assessed 10/24/24 05/01/25 10:40 Currently or been in a relationship where the following occur: No concerns reported Coding Level of Care Code Est Pt Level 3 (63944) Est Pt Prev Care 40-64y(47210) Diagnoses Encounter for general adult medical examination with abnormal findings Z00.01 Moderate persistent asthma without complication J45.40 Asthma complication type: uncomplicated Class 1 obesity due to excess calories with serious comorbidity and body mass index (BMI) of 34.0 to 34.9 in adult E66.09; Z68.34 Body mass index: BMI 34.0-34.9 Obesity classification: adult class 1 (BMI 30 - 34.9) Serious obesity comorbidity presence: with serious comorbidity Impaired fasting blood sugar R73.01 Lipid disorder E78.9 Additional Codes CAROLINA-7 Assessment Billing - CAROLINA-7 Assessment Tool: CAROLINA-7 Assessment 93103 ([id number]) PHQ-9 - 03554 - PHQ-9 Billing: Yes ([id number]) Assessment & Plan Assessment & Plan (1) Encounter for general adult medical examination with abnormal findings: Code(s): Z00.01 - Encounter for general adult medical examination with abnormal findings Category: Medical (2) Asthma, moderate persistent: Code(s): J45.40 - Moderate persistent asthma, uncomplicated Category: Medical Qualifiers: Asthma complication type: uncomplicated Qualified Code(s): J45.40 - Moderate persistent asthma, uncomplicated (3) Obesity due to excess calories: Code(s): E66.09 - Other obesity due to excess calories Category: Medical Qualifiers: Body mass index: BMI 34.0-34.9 Obesity classification: adult class 1 (BMI 30 - 34.9) Serious obesity comorbidity presence: with serious comorbidity Qualified Code(s): E66.09 - Other obesity due to excess calories; Z68.34 - Body mass index [BMI] 34.0-34.9, adult (4) Impaired fasting blood sugar: Code(s): R73.01 - Impaired fasting glucose Category: Medical (5) Lipid disorder: Code(s): E78.9 - Disorder of lipoprotein metabolism, unspecified Category: Medical Plan Hyperlipidemia: - The patient is taking rosuvastatin 5 mg for management. - Recent labs showed an LDL cholesterol of 113 or 118, and total cholesterol was described as okay. Asthma: - The patient uses a Wixela inhaler once daily and reports feeling well with this regimen. History of Basal Cell Carcinoma: - The patient had a basal cell carcinoma diagnosed on her abdomen. - She was seen at [facility] on March 16, and a report was sent regarding the finding. - Benign spots on her back were also evaluated during the same visit. Health Maintenance: - A mammogram was performed on April 11, which was normal after requiring additional views for fibrous tissue. - Her last Pap smear was in 2022, and she was advised to contact her SOFTWARE SUPPORT REPRESENTATIVE for follow-up. - She had a screening colonoscopy several years ago, around age 52 or 53, and believes the recommended interval was 10 years. - The office will request the report from Dr. Robles's office, and the patient will also look for her copy at home. - The patient declined the influenza vaccine. Wales of Care - The patient has an SOFTWARE SUPPORT REPRESENTATIVE she will follow up with. - The patient's fly frame tender is Dr. Robles - The patient was seen at [facility]. Diagnostic results - Labs (recent): CBC from October showed good hemoglobin. More recent comprehensive metabolic panel showed normal kidney function, electrolytes, and liver enzymes. Lipid panel showed LDL of 113 or 118, and total cholesterol was okay. - Mammogram (April 11): Normal after additional views were obtained for dense breast tissue. - Pap Smear (2022): Patient advised to contact her SOFTWARE SUPPORT REPRESENTATIVE about the results. - Dermatology Report (March 16): Confirmed diagnosis of basal cell carcinoma on the abdomen. Patient Instructions - Follow up in 6 months for a check-up and in 1 year for your next physical exam. - You will need to have blood tests done before each visit. - Please contact your SOFTWARE SUPPORT REPRESENTATIVE's office to follow up on your Pap smear results from last year. - Please find your old colonoscopy report at home and call our office to provide the date and the results. Orders: Orders Complete Blood Count Auto Diff Today E66.09 - Other obesity due to excess calories, E78.9 - Disorder of lipoprotein metabolism, unspecified, J45.40 - Moderate persistent asthma, uncomplicated, R73.01 - Impaired fasting glucose, Z00.01 - Encounter for general adult medical examination with abnormal findings, Z68.34 - Body mass index [BMI] 34.0-34.9, adult Comprehensive [place]. Panel Fast Today E66.09 - Other obesity due to excess calories, E78.9 - Disorder of lipoprotein metabolism, unspecified, J45.40 - Moderate persistent asthma, uncomplicated, R73.01 - Impaired fasting glucose, Z00.01 - Encounter for general adult medical examination with abnormal findings, Z68.34 - Body mass index [BMI] 34.0-34.9, adult Lipid Panel Today E66.09 - Other obesity due to excess calories, E78.9 - Disorder of lipoprotein metabolism, unspecified, J45.40 - Moderate persistent asthma, uncomplicated, R73.01 - Impaired fasting glucose, Z00.01 - Encounter for general adult medical examination with abnormal findings, Z68.34 - Body mass index [BMI] 34.0-34.9, adult
== END 2025-05-01 10:53 | disposition home or self-care (01) ==
LOC: HO.HMCC 10:29
PROVIDERS: PCP Internal Medicine; Visit Provider Internal Medicine
DX: Z00.01 Encounter for general adult medical examination with abnormal findings (principal); J45.40 Moderate persistent asthma, uncomplicated; E66.09 Other obesity due to excess calories; Z68.34 Body mass index [BMI] 34.0-34.9, adult; R73.01 Impaired fasting glucose; E78.9 Disorder of lipoprotein metabolism, unspecified

== ENCOUNTER → 2025-05-01 10:28 | Outpatient (BNVA) | payer BC, SELFPAY | PROVIDERS: PCP Internal Medicine; Visit Provider Internal Medicine | DX: Z00.01 Encounter for general adult medical examination with abnormal findings (principal); J45.40 Moderate persistent asthma, uncomplicated; E78.5 Hyperlipidemia, unspecified; E66.09 Other obesity due to excess calories; R73.01 Impaired fasting glucose; E78.9 Disorder of lipoprotein metabolism, unspecified; Z68.35 Body mass index [BMI] 35.0-35.9, adult | CPT/HCPCS: 96127 ==

== ENCOUNTER 2025-05-02 10:47 | Outpatient (AMB) | payer BC, SELFPAY ==
--- OUTSIDE RECORDS SUMMARY | 2025-05-02 21:16 | XMS_ITS | Patient Health Record ---
Author Organization [facility] Address [address] [place] [address] Care Team Providers Care Workday Manager Name Role Phone Walter KUO, Asma Primary Care Provider Richard Escalona Jr Reason For Referral No Information Medications Medication SIG (Take, Route, Frequency, Duration) Notes Start Date End Date Status ibuprofen 1 tab Oral as needed Active Advair Diskus 100-50 MCG/DOSE Aerosol Powder Breath Activated INHALE 1 PUFF BY MOUTH TWICE A DAY Inhalation; Duration: 30 Active Sertraline HCl 25 MG Tablet TAKE 1 TABLE T BY MOUTH EVERY DAY Oral; Duration: 60 Active Colyte with Flavor Packs 240 GM Solution Reconstituted As directed Orally Over the specified time.; Duration: 1 day(s) 07/28/2018 Active Immunizations Vaccine Route Administration Date Status Comme nts Influenza Unknown 07/28/2018 Refused Social History Tobacco Use: Social History Observation Description Date Details (start date - stop date) Never Smoker NA - NA Social History Drugs/Alcohol: Social Info Question Answer Notes Alcohol Screen Did you have a drink containing alcohol in the past year? Yes How often did you have a drink containing alcohol in the past year? 2 to 3 times a week (3 points) How many drinks did you have on a typical day when you were drinking in the past year? 1 or 2 drinks (0 point) How often did you have 6 or more drinks on one occasion in the past year? Never (0 point) Points 3 Interpretation Positive Tobacco Use: Social Info Question Answer Notes Tobacco Use/Smoking Patient is a nonsmoker Additional Details Category Social Info Options Details Miscellaneous: Marital status: Occupation: asst director [employer] Problems Problem Type SNOMED Code ICD Code Onset Dates Problem Status W/U Status Risk Notes Problem Colon cancer screening (342930929) Colon cancer screening (Z12.11) Active confirmed Problem Pre-procedure evaluation check (354002049) Encounter for other preprocedural examination (Z01.818) Active confirmed Encounters Encounter Location Date Provider Diagnosis [facility] [address] [place] [address] 05/01/2025 Richard Robles Jr Plan Of Treatment Future Test Test Name Order Date COLONOSCOPY 07/28/2018 Insurance Providers Payer Name Payer Address Payer Phone Subscriber Number Group Number Insured Name Patient Relationship to Insured Coverage Start Date Coverage End Date [facility] [address] [place] [address] [id number] 200 OLINDA CARPIO Self - patient is the insured Medical (General) History Medical History History ICD Code Denies [place],DM,CVA,Lung disease,renal dise ase asthma urinary incontinence-mild anxiety Surgical History Surgery Date(Month/Year) nasal polyp 2008
--- OUTSIDE RECORDS SUMMARY | 2025-05-02 21:16 | XMS_ITS | Patient Health Record ---
Author Organization [facility] Address [address] [place] [address] Care Team Providers Care Paint Roller Assembler Name Role Phone Walter KUO, Asma Primary Care Provider Unavailabl e Black, Melia Unavailable [phone] Reason For Referral No Information Problems Problem Type SNOMED Code ICD Code Onset Dates Problem Status W/U Status Risk Notes Problem Onychomycosis (248438789) Onychomycosis (110.1) Active confirmed Problem Pain in limb (14357109) Pain in Limb (729.5) Active confirmed Plan Of Treatment Pending Test Test Name Order Date *Liver Function Test (LFT) 08/24/2012 Insurance Providers Payer Name Payer Address Payer Phone Subscriber Number Group Number Insured Name Patient Relationship to Insured Coverage Start Date Coverage End Date [facility] [address] [place] [address] [id number] Saba Fernandez Self - patient is the insured Medical (General) History Medical History History ICD Code asthma chronic sinusitis Surgical History Surgery Date(Month/Year) nasal polyps 08/29/2011
== END 2025-05-02 10:48 | disposition home or self-care (01) ==
LOC: HO.HMGAL 10:47
PROVIDERS: PCP Internal Medicine; Visit Provider Registered Nurse Emergency
DX: J30.89 Other allergic rhinitis (principal)
CPT/HCPCS: 95117; 95165

== ENCOUNTER 2025-05-30 09:58 | Outpatient (AMB) | payer BC, SELFPAY ==
--- OUTSIDE RECORDS SUMMARY | 2025-05-30 12:04 | XMS_ITS | Patient Health Record ---
Author Organization [facility] Address [address] [place] [address] Care Team Providers Care Vendor Specialist Name Role Phone Walter KUO, Asma Primary Care Provider Unavailabl e Black, Melia Unavailable [phone] Reason For Referral No Information Problems Problem Type SNOMED Code ICD Code Onset Dates Problem Status W/U Status Risk Notes Problem Onychomycosis (504872423) Onychomycosis (110.1) Active confirmed Problem Pain in limb (69942664) Pain in Limb (729.5) Active confirmed Plan Of Treatment Pending Test Test Name Order Date *Liver Function Test (LFT) 08/24/2012 Insurance Providers Payer Name Payer Address Payer Phone Subscriber Number Group Number Insured Name Patient Relationship to Insured Coverage Start Date Coverage End Date [facility] [address] [place] [address] [id number] Saba Fernandez Self - patient is the insured Medical (General) History Medical History History ICD Code asthma chronic sinusitis Surgical History Surgery Date(Month/Year) nasal polyps 08/29/2011
--- OUTSIDE RECORDS SUMMARY | 2025-05-30 12:04 | XMS_ITS | Patient Health Record ---
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[employer] Problems Problem Type SNOMED Code ICD Code Onset Dates Problem Status W/U Status Risk Notes Problem Colon cancer screening (629322462) Colon cancer screening (Z12.11) Active confirmed Problem Pre-procedure evaluation check (998468971) Encounter for other preprocedural examination (Z01.818) Active confirmed Encounters Encounter Location Date Provider Diagnosis [facility] [address] [place] [address] 05/01/2025 Richard Robles Jr Plan Of Treatment Future Test Test Name Order Date COLONOSCOPY 07/28/2018 Insurance Providers Payer Name Payer Address Payer Phone Subscriber Number Group Number Insured Name Patient Relationship to Insured Coverage Start Date Coverage End Date [facility] [address] [place] [address] [id number] OLINDA CARPIO Self - patient is the insured Medical (General) History Medical History History ICD Code Denies [place],DM,CVA,Lung disease,renal dise ase asthma urinary incontinence-mild anxiety Surgical History Surgery Date(Month/Year) nasal polyp 2008
== END 2025-05-30 09:59 | disposition home or self-care (01) ==
LOC: HO.HMGAL 09:58
PROVIDERS: PCP Internal Medicine; Visit Provider Registered Nurse Emergency
DX: J30.89 Other allergic rhinitis (principal)
CPT/HCPCS: 95117; 95165